=== PATIENT | female | born 1980 | race Caucasian/White ===

== ENCOUNTER 2017-12-02 12:36 | Emergency (ER) | payer BC, SELFPAY ==
[2017-12-02 14:42] VITALS: BP 103/79; PULSE 83; RESP 16; TEMP 36.9; O2SAT 100; BMI 25.8
--- NOTE | 2017-12-02 15:35 | HMH.EDUTC ---
[facility] [place] Clinical Impression: Impacted cerumen, right ear Right otitis media Qualifiers: Otitis media type: suppurative Chronicity: acute Recurrence: not specified as recurrent Spontaneous tympanic membrane rupture: without spontaneous rupture Qualified Code(s): H66.001 - Acute suppurative otitis media without spontaneous rupture of ear drum, right ear Disposition: Home, Self-Care Condition on Discharge: Good Instructions: DI for Cerumen Impaction, DI for Otitis Media (Middle Ear Infection)-Child Additional Instructions: * cerumen easily removed * Start antibiotic ABHISHEK and be sure to take as ordered for the FULL length of time although you should start to feel better in 24-48 hours. * Monitor Temp. Tylenol every 4 hours as needed no more then 5 times a day or 4000mg in 24 hours and/or ibuprofen every 6 hours as needed no more then 3200mg in 24 hours (as long as your primary care doctor has told you that it is ok to take both) for fever/aches/pain. ER if fever no less than 101 despite Tylenol and ibuprofen * Encourage fluids, water, Gatorade, PowerAde, pedialyte if /toddler/child * warm compress often helps when placed over ear * sleep elevated * Immediately for new or worsening symptoms, no noticeable improvement in 48-72 hours AND in 10-14 days to ensure ears are back to baseline. Prescriptions: Amoxicillin [Amoxicillin 875MG Tab] 875 mg PO Q12H #20 tab Referrals: Alvaro Licea MD [Primary Care Provider] - Medical Decision Making Vital Signs: 12/02/17 14:42 Temperature 98.5 F Temperature Source Temporal Artery Scan Pulse Rate [Left] 83 Respiratory Rate 16 Blood Pressure [Right Arm] 103/79 Blood Pressure Mean [Right Arm] 87 Blood Pressure Source [Right Arm] Automatic Cuff Blood Pressure Position [Right Arm] Sitting 02 Sat by Pulse Oximetry 100 Oxygen Delivery Method Room Air - Kyle Inquiry Pt receiving controlled substance: No [facility] [place] - General Stated complaint: ear pain Time Seen by Provider: 12/02/17 15:38 Mode of Arrival: Ambulatory Source of Information: Patient Limitations: No Limitations Description of Symptoms (Recalled from Triage Doc. by RN): RIGHT EAR ACHE YESTERDAY HEENT Symptoms (Recalled from RN notes): Yes Resp Symptoms (Recalled from RN notes): No Skin Symptoms (Recalled from RN notes): No MS Symptoms (Recalled from RN notes): No Functional Status (Recalled from RN notes): N - History of Present Illness Provider Complaint: c/o right ear pain that woke her up suddenly at 2am this morning. Mild irritation in ear x days. Tried alcohol/vinegar due to hx of otitis externa but didn't help. No fevers. No ear drainage. Decreased like muffled hearing. No treatment since pain got severe last night. - Related Data Previous Rx's Medication Instructions Recorded Amoxicillin [Amoxicillin 875MG Tab] 875 mg PO Q12H #20 tab 12/02/17 Allergies Allergy/AdvReac Type Severity Reaction Status Date / Time No Known Allergies Allergy Verified 12/02/17 14:49 - Worker's Comp Is this a Worker's Comp case?: No [facility] History I have reviewed the patient's past medical history: Yes Medical History: Denies:: Diabetes Mellitus Type 1, Diabetes Mellitus Type 2, Hypertension, Migraine - *Social History Alcohol Intake: never - Psychiatric History Expresses thoughts of harming self/others: None Suicide Plan Description: No Plan ROS Obtained: Yes All systems reviewed & no additional complaints except as noted - Constitutional Denies body ache(s), Denies chills, Denies fever(s), Denies headache(s) - Eyes Denies discharge - ENT Reports nasal discharge (mild, intermittent, x weeks), Denies dizziness, Denies nasal congestion, Denies sinus pain, Denies sinus pressure, Denies sore throat, Denies ringing in the ears - Respiratory Denies cough - Gastrointestinal Denies nausea, Denies vomiting - Musculoskeletal Denies joint pain - Integumentary/Breasts Denies r
--- NOTE | 2017-12-02 15:47 | ED_ITS ---
[facility] [place] Impression: Impacted cerumen, right ear Right otitis media Qualifiers: Otitis media type: suppurative Chronicity: acute Recurrence: not specified as recurrent Spontaneous tympanic membrane rupture: without spontaneous rupture Qualified Code(s): H66.001 - Acute suppurative otitis media without spontaneous rupture of ear drum, right ear Disposition: Home, Self-Care Condition on Discharge: Good Instructions: DI for Cerumen Impaction, DI for Otitis Media (Middle Ear Infection)-Child Additional Instructions: * cerumen easily removed * Start antibiotic ABHISHEK and be sure to take as ordered for the FULL length of time although you should start to feel better in 24-48 hours. * Monitor Temp. Tylenol every 4 hours as needed no more then 5 times a day or 4000mg in 24 hours and/or ibuprofen every 6 hours as needed no more then 3200mg in 24 hours (as long as your primary care doctor has told you that it is ok to take both) for fever/aches/pain. ER if fever no less than 101 despite Tylenol and ibuprofen * Encourage fluids, water, Gatorade, PowerAde, pedialyte if /toddler/ child * warm compress often helps when placed over ear * sleep elevated * Immediately for new or worsening symptoms, no noticeable improvement in 48-72 hours AND in 10-14 days to ensure ears are back to baseline. Prescriptions: Amoxicillin [Amoxicillin 875MG Tab] 875 mg PO Q12H #20 tab Referrals: Alvaro Licea MD [Primary Care Provider] - Medical Decision Making Vital Signs: 12/02/17 14:42 Temperature 98.5 F Temperature Source Temporal Artery Scan Pulse Rate [Left] 83 Respiratory Rate 16 Blood Pressure [Right Arm] 103/79 Blood Pressure Mean [Right Arm] 87 Blood Pressure Source [Right Arm] Automatic Cuff Blood Pressure Position [Right Arm] Sitting 02 Sat by Pulse Oximetry 100 Oxygen Delivery Method Room Air - Kyle Inquiry Pt receiving controlled substance: No [facility] [place] - General Stated complaint: ear pain Time Seen by Provider: 12/02/17 15:38 Mode of Arrival: Ambulatory Source of Information: Patient Limitations: No Limitations Description of Symptoms (Recalled from Triage Doc. by RN): RIGHT EAR ACHE YESTERDAY HEENT Symptoms (Recalled from RN notes): Yes Resp Symptoms (Recalled from RN notes): No Skin Symptoms (Recalled from RN notes): No MS Symptoms (Recalled from RN notes): No Functional Status (Recalled from RN notes): N - History of Present Illness Provider Complaint: c/o right ear pain that woke her up suddenly at 2am this morning. Mild irritation in ear x days. Tried alcohol/vinegar due to hx of otitis externa but didn't help. No fevers. No ear drainage. Decreased like muffled hearing. No treatment since pain got severe last night. - Related Data Previous Rx's Medication Instructions Recorded Amoxicillin [Amoxicillin 875MG Tab] 875 mg PO Q12H #20 tab 12/02/17 Allergies Allergy/AdvReac Type Severity Reaction Status Date / Time No Known Allergies Allergy Verified 12/02/17 14:49 - Worker's Comp Is this a Worker's Comp case?: No [facility] History I have reviewed the patient's past medical history: Yes Medical History: Denies:: Diabetes Mellitus Type 1, Diabetes Mellitus Type 2, Hypertension, Migraine - *Social History Alcohol Intake: never - Psychiatric History Expresses thoughts of harming self/others: None Suicide Plan Descripti
== END 2017-12-02 16:05 | disposition home or self-care (01) ==
PROVIDERS: Emergency Provider Nurse Practitioner Family; Family Provider Emergency Medicine; PCP Emergency Medicine
DX: H66.001 Acute suppurative otitis media without spontaneous rupture of ear drum, right ear (principal); H61.21 Impacted cerumen, right ear
CPT/HCPCS: 69210; 99202

== ENCOUNTER 2018-02-09 16:36 | Emergency (ER) | payer BC, SELFPAY ==
[2018-02-09 17:05] VITALS: BP 123/84; PULSE 113; RESP 18; TEMP 36.8; O2SAT 98; BMI 28.3
--- NOTE | 2018-02-09 17:24 | HMH.EDUTC ---
[facility] [place] Dis[place] Clinical Impression: Influenza Disposition: Home, Self-Care Condition on Discharge: Good Instructions: Influenza Additional Instructions: ? Start Tamiflu today if you are going to take it. Discussed risk and possible benefits. ? Lots of rest ? Increase Fluids water, Gatorade, powerade, pedialyte,if /toddler/child ? Alternate Tylenol and / or ibuprofen as discussed for fever, aches, chills x 24 hours without medication for symptoms ? Follow up IMMEDIATELY for new or worsening Symptoms OR no noticeable improvement over the next 48-72 hours, 911 for difficulty or breathing ? You or your child area contagious until no fever, aches, chills for 24 hours with medication for symptoms Prescriptions: Brompheniramine/Pseudoephed/Dm [Bromfed DM Cough Syrup 5mL] 10 ml PO Q4HP PRN #350 ml PRN Reason: Cough Oseltamivir Phosphate [Tamiflu 75mg Capsule] 75 mg PO BID #10 cap Referrals: Alvaro Licea MD [Primary Care Provider] - Forms: Work/School Release Time of Disposition: 17:29 Medical Decision Making - Medical Records Medical records reviewed: Yes: I reviewed the patient's medical records. - Kyle Inquiry Pt receiving controlled substance: No Kyle was queried for this patient: No Vital Signs: 02/09/18 17:05 Temperature 98.2 F Temperature Source Temporal Artery Scan Pulse Rate [Right] 113 H Respiratory Rate 18 Blood Pressure [Right Arm] 123/84 Blood Pressure Mean [Right Arm] 97 Blood Pressure Source [Right Arm] Automatic Cuff Blood Pressure Position [Right Arm] Sitting 02 Sat by Pulse Oximetry 98 Oxygen Delivery Method Room Air - Lab Data Lab results reviewed: Yes: I reviewed the patient's lab results. [facility] [place] HPI - General Stated complaint: Right ear pain, congestion Time Seen by Provider: 02/09/18 17:15 Mode of Arrival: Ambulatory Source of Information: Patient Limitations: No Limitations Description of Symptoms (Recalled from Triage Doc. by RN): EAR ACHE, CHEST CONGESTION HEENT Symptoms (Recalled from RN notes): Yes Resp Symptoms (Recalled from RN notes): No Skin Symptoms (Recalled from RN notes): No MS Symptoms (Recalled from RN notes): No Functional Status (Recalled from RN notes): N - History of Present Illness Provider Complaint: Patient state that she has been having ear aches, body aches, chills and fever State that today her throat felt a little sore States that she was seen on Wednesday but now she feels like she may have the flu - Related Data Previous Rx's Medication Instructions Recorded Amoxicillin [Amoxicillin 875MG Tab] 875 mg PO Q12H #20 tab 12/02/17 Brompheniramine/Pseudoephed/Dm 10 ml PO Q4HP PRN #350 ml 02/09/18 [Bromfed DM Cough Syrup 5mL] Oseltamivir Phosphate [Tamiflu 75 mg PO BID #10 cap 02/09/18 75mg Capsule] Allergies Allergy/AdvReac Type Severity Reaction Status Date / Time No Known Allergies Allergy Verified 12/02/17 14:49 - Worker's Comp Is this a Worker's Comp case?: No [facility] [place] History I have reviewed the patient's past medical history: Yes Medical History: Denies:: Diabetes Mellitus Type 1, Diabetes Mellitus Type 2, Hypertension, Migraine - Social History Alcohol Intake: never - Psychiatric History Expresses thoughts of harming self/others: None Suicide Plan Description: No Plan ROS Obtained: Yes All systems reviewed & no additional complaints - Constitutional Constitutional: Reports body ache, Reports chills, Reports fever(s) - ENT Ears, Nose, Mouth, and Throat: Reports nasal congestion, Reports nasal discharge, Reports sore throat - Respiratory Respiratory: No chest congestion, Yes cough Physical Exam - General General appearance: alert, in no apparent distress - Expanded ENT Exam Nose exam: Present: other (Reports clear drainage from nose) - Respiratory Respiratory exam: Present: normal lung sounds bilaterally. Absent: respiratory distress - Cardiovascular Cardiovascular exam: Present: tachy
--- NOTE | 2018-02-09 17:28 | ED_ITS ---
[facility] – [place] Disposition Clinical Impression: Influenza Disposition: Home, Self-Care Condition on Discharge: Good Instructions: Influenza Additional Instructions: ? Start Tamiflu today if you are going to take it. Discussed risk and possible benefits. ? Lots of rest ? Increase Fluids water, Gatorade, powerade, pedialyte,if /toddler/child ? Alternate Tylenol and / or ibuprofen as discussed for fever, aches, chills x 24 hours without medication for symptoms ? Follow up IMMEDIATELY for new or worsening Symptoms OR no noticeable improvement over the next 48-72 hours, 911 for difficulty or breathing ? You or your child area contagious until no fever, aches, chills for 24 hours with medication for symptoms Prescriptions: Brompheniramine/Pseudoephed/Dm [Bromfed DM Cough Syrup 5mL] 10 ml PO Q4HP PRN # 350 ml PRN Reason: Cough Oseltamivir Phosphate [Tamiflu 75mg Capsule] 75 mg PO BID #10 cap Referrals: Alvaro Licea MD [Primary Care Provider] - Forms: Work/School Release Time of Disposition: 17:29 Medical Decision Making - Medical Records Medical records reviewed: Yes: I reviewed the patient's medical records. - Kyle Inquiry Pt receiving controlled substance: No Kyle was queried for this patient: No Vital Signs: 02/09/18 17:05 Temperature 98.2 F Temperature Source Temporal Artery Scan Pulse Rate [Right] 113 H Respiratory Rate 18 Blood Pressure [Right Arm] 123/84 Blood Pressure Mean [Right Arm] 97 Blood Pressure Source [Right Arm] Automatic Cuff Blood Pressure Position [Right Arm] Sitting 02 Sat by Pulse Oximetry 98 Oxygen Delivery Method Room Air - Lab Data Lab results reviewed: Yes: I reviewed the patient's lab results. [facility] [place] HPI - General Stated complaint: Right ear pain, congestion Time Seen by Provider: 02/09/18 17:15 Mode of Arrival: Ambulatory Source of Information: Patient Limitations: No Limitations Description of Symptoms (Recalled from Triage Doc. by RN): EAR ACHE, CHEST CONGESTION HEENT Symptoms (Recalled from RN notes): Yes Resp Symptoms (Recalled from RN notes): No Skin Symptoms (Recalled from RN notes): No MS Symptoms (Recalled from RN notes): No Functional Status (Recalled from RN notes): N - History of Present Illness Provider Complaint: Patient state that she has been having ear aches, body aches , chills and fever State that today her throat felt a little sore States that she was seen on Wednesday but now she feels like she may have the flu - Related Data Previous Rx's Medication Instructions Recorded Amoxicillin [Amoxicillin 875MG Tab] 875 mg PO Q12H #20 tab 12/02/17 Brompheniramine/Pseudoephed/Dm 10 ml PO Q4HP PRN #350 ml 02/09/18 [Bromfed DM Cough Syrup 5mL] Oseltamivir Phosphate [Tamiflu 75 mg PO BID #10 cap 02/09/18 75mg Capsule] Allergies Allergy/AdvReac Type Severity Reaction Status Date / Time No Known Allergies Allergy Verified 12/02/17 14:49 - Worker's Comp Is this a Worker's Comp case?: No [facility] History I have reviewed the patient's past medical history: Yes Medical History: Denies:: Diabetes Mellitus Type 1, Diabetes Mellitus Type 2, Hypertension, Migraine - Social History Alcohol Intake: never - Psychiatric History Expresses thoughts of harming self/others: None Suicide Plan Description: No Plan ROS Obtained: Yes All
[2018-02-09 17:32] VITALS: BP 123/84; PULSE 110; RESP 18; TEMP 36.8
[2018-02-09 19:16] LABS: UTC Influenza A Antigen Positive (Negative); UTC Influenza B Antigen Negative (Negative)
== END 2018-02-09 17:41 | disposition home or self-care (01) ==
PROVIDERS: Emergency Provider Nurse Practitioner; Family Provider Emergency Medicine; PCP Emergency Medicine
DX: J10.1 Influenza due to other identified influenza virus with other respiratory manifestations (principal); H66.91 Otitis media, unspecified, right ear; H61.21 Impacted cerumen, right ear
CPT/HCPCS: 87804; 99201

== ENCOUNTER 2021-02-22 13:56 | Emergency (ER) | payer BC, SELFPAY ==
[2021-02-22 14:18] VITALS: BP 137/88; PULSE 100; RESP 16; TEMP 36.2; O2SAT 98; BMI 29.0
--- NOTE | 2021-02-22 14:39 | HMH.EDUTC ---
[facility] [place] Clinical Impression: Laceration Disposition: Home, Self-Care Condition on Discharge: Good Instructions: DI for Laceration Repair-Skin Glue Additional Instructions: keep area clean and dry watch for s/s infection antibiotics as ordered return if any problems Prescriptions: cephALEXin [Cephalexin 500mg Tab] 500 mg PO BID 7 Days #14 tab Prescription Printed Referrals: Alvaro Licea MD [Primary Care Provider] - Time of Disposition: 15:13 Medical Decision Making - Kyle Inquiry Pt receiving controlled substance: No Vital Signs: 02/22/21 14:18 Temperature 97.2 F L Temperature Source Tympanic Pulse Rate [Right] 100 H Respiratory Rate 16 Blood Pressure [Right Arm] 137/88 Blood Pressure Mean [Right Arm] 104 Blood Pressure Source [Right Arm] Automatic Cuff Blood Pressure Position [Right Arm] Sitting 02 Sat by Pulse Oximetry 98 Oxygen Delivery Method Room Air [facility] [place] HPI - General Chief complaint: Urgent [facility] Stated complaint: AO [id number] cut left thumb Time Seen by Provider: 02/22/21 15:03 Mode of Arrival: Ambulatory Source of Information: Patient Limitations: No Limitations Description of Symptoms (Recalled from Triage Doc. by RN): pt has a laceration on the top of her L thumb from a kitchen knife. there is a very small skin flap covering the laceration. HEENT Symptoms (Recalled from RN notes): No Resp Symptoms (Recalled from RN notes): No Skin Symptoms (Recalled from RN notes): Yes (L thumb lac) MS Symptoms (Recalled from RN notes): No Functional Status (Recalled from RN notes): na - History of Present Illness Provider Complaint: 40 yr old female presents for laceration to left thumb. pt states she was cutting food and sliced thumb with knife a few hours ago. unknown tetus date - Related Data Previous Rx's Medication Instructions Recorded prednisone 20 mg tablet 20 mg PO BID #10 tab 07/04/20 cephALEXin [Cephalexin 500mg Tab] 500 mg PO BID 7 Days #14 tab 02/22/21 Allergies Allergy/AdvReac Type Severity Reaction Status Date / Time No Known Allergies Allergy Verified 09/23/19 18:00 - Worker's Comp Is this a Worker's Comp case?: No [facility] History - Hepatitis A Screen Drug use history?: No High risk sexual behaviors?: No History of sexually transmitted infection?: No Currently employed?: No Childcare worker?: No Do you have indoor plumbing?: Yes Do you have electricity?: Yes Attestation statement:: This patient has been screened for Hepatitis A risk factors. I have reviewed the patient's past medical history: Yes Medical History: Denies:: Diabetes Mellitus Type 1, Diabetes Mellitus Type 2, Hypertension, Migraine Other Surgeries: Yes: No Previous Surgery Amputation: No Fractures: No - Social History Smoking Status: Never smoker Alcohol Intake: current Alcohol Intake Frequency:: holidays/special occasions only Substance Use Type: denies use Occupational Status: employed Housing: house Household Members: children, spouse Family Hx:: Diabetes ROS Obtained: Yes Systems reviewed as appropriate & no additional complaints - Constitutional Constitutional: Reports system reviewed and no additional complaints, except as docu, Denies fever(s) - Eyes Eyes: Reports system reviewed and no additional complaints, except as docu, Denies blurry vision - ENT Ears, Nose, Mouth, and Throat: Reports system reviewed and no additional complaints, except as docu, Denies lip swelling - Cardiovascular Cardiovascular: Reports system reviewed and no additional complaints, except as docu, Denies chest pain at rest - Respiratory Respiratory: Reports system reviewed and no additional complaints, except as docu, Denies change in phlegm color - Gastrointestinal Gastrointestingal: Reports: system reviewed and no additional complaints, except as docu. Denies: nausea - Genitourinary Female Genitourinary: Reports system reviewed and no additional complaints, exc
[2021-02-22 15:12] VITALS: BP 132/81; PULSE 95; RESP 14; TEMP 36.6
== END 2021-02-22 15:16 | disposition home or self-care (01) ==
PROVIDERS: Emergency Provider Nurse Practitioner Family; PCP Emergency Medicine
DX: S61.012A Laceration without foreign body of left thumb without damage to nail, initial encounter (principal); W26.0XXA Contact with knife, initial encounter; Y92.010 Kitchen of single-family (private) house as the place of occurrence of the external cause; Z23 Encounter for immunization
CPT/HCPCS: 12001; 90471; 90715; 99202; G0463

== ENCOUNTER 2021-02-27 15:22 | Emergency (ER) | payer BC, SELFPAY ==
--- NOTE | 2021-02-27 15:31 | PC.NURSE ---
pt came in and I examined wound. Wound had no redness and looked good. Rebandaged and pt left without being seen by provider.
[2021-02-27 15:32] VITALS: BP 0/0; PULSE 0; RESP 0; TEMP -17.7; TEMP 0
== END 2021-02-27 15:32 | disposition left against medical advice (07) ==
PROVIDERS: Emergency Provider Nurse Practitioner Family; PCP Emergency Medicine
DX: Z53.21 Procedure and treatment not carried out due to patient leaving prior to being seen by health care provider (principal)

== ENCOUNTER → 2021-04-14 14:04 | Outpatient (CLI) | payer BC, SELFPAY ==
[2021-04-14 14:16] LABS: Basophils # 0.1 K/mm3 (0-0.2); Basophils % 0.5 % (0.1-2.0); Eosinophils # 0.2 K/mm3 (0.0-0.4); Eosinophils % 1.4 % (0.1-12.0); Hematocrit 42.5 % (37.0-47.0); Hemoglobin 12.8 g/dL (12.2-16.2); Mean Corpuscular Volume 89.9 fl (81-99); Mean Platelet Volume 7.5 fl (7.4-10.4); Monocytes # 0.7 K/mm3 (0.1-1.0); Monocytes % 6.6 % (1.7-9.3); Neutrophils # 7.5 K/mm3 (1.8-7.8); Neutrophils % 72.5 % (37.0-80.0); Platelet Count 390 K/mm3 (142-424); Red Blood Count 4.73 M/mm3 (4.20-5.40); Red Cell Distribution Width 13.7 % (11.5-17.5); White Blood Count 10.4 K/mm3 (4.8-10.8)
[2021-04-14 14:27] LABS: Alanine Aminotransferase 24 U/L (12-78); Albumin Level 4.1 g/dl (3.5-5.0); Albumin/Globulin Ratio 1.4 (1.1-1.8); Alkaline Phosphatase 80 U/L (38-126); Anion Gap 11.8 mEq/L (5-15); Aspartate Amino Transferase 24 U/L (14-36); Bilirubin,Total 0.5 mg/dl (0.2-1.3); Blood Urea Nitrogen 14 mg/dl (7-17); Calcium 9.2 mg/dl (8.4-10.2); Carbon Dioxide 23 mmol/L (22.0-30.0); Chloride 108 mmol/L (98-107); Chol/HDL Ratio 4.3 (1-3.5); Cholesterol 213 mg/dl (140-200); Estimated Glomerular Filt Rate 79 ml/min (>60); GFR (African American) 96 ML/MIN (>60); Globulin 2.9 g/dL (1.3-3.2); Glucose 120 mg/dl (74-100); HDL Cholesterol 49 mg/dl (40-60); Potassium 4.8 mmoL/L (3.5-5.1); Sodium 138 mmol/L (136-145); Triglycerides 145 mg/dl (30-150); VLDL Cholesterol 29 mg/dL (0-40)
[2021-04-14 14:33] LABS: 25-OH Vitamin D, Total 24.5 ng/mL (30-100)
[2021-04-14 14:38] LABS: Direct LDL Cholesterol 120.06 mg/dL (100-129)
[2021-04-14 14:43] LABS: Free T4 (Free Thyroxine) 0.99 ng/dl (0.78-2.19)
[2021-04-14 14:56] LABS: Thyroid Stimulating Hormone 2.66 uIU/mL (0.465-4.68)
[2021-04-14 17:54] LABS: Hemoglobin A1C 5.7 % (4.0-6.0)
== END ==
PROVIDERS: Visit Provider Emergency Medicine
DX: R53.83 Other fatigue (principal); E55.9 Vitamin D deficiency, unspecified
CPT/HCPCS: 80053; 80061; 82306; 83036; 84439; 84443; 85025

== ENCOUNTER → 2021-04-29 09:29 | Outpatient (CLI) | payer BC, SELFPAY ==
--- NOTE | 2021-04-29 09:32 | CA_ITS ---
APPROVED REPORT EXAM: Comprehensive 2D, Doppler, and color-flow Echocardiogram Automotive Painter: Sera Jauregui RVT Ht: 5 ft 6 in Wt: 208lbs BSA: 2.03 BP: 124/80 mmHg Indications: MURMUR,EX SMOKER,MCKOY 2D Dimensions LVOT 2.16 cm (M/F) 1.5-2.5 LA Volume 21.80 mL LA Volume Index 10.73 mL/m2 (M/F) 16-34 M-Mode Dimensions RVDd 2.57 cm (0.9-2.6) LA Diam 3.39 cm (1.9-4.0) LVDd 5.33 cm (3.5-5.7) Ao Diam 2.92 cm (2.0-3.7) LVDs 3.65 cm (3.5-5.7) IVSd 0.89 cm (0.6-1.1) PWd 0.64 cm (0.6-1.1) EF (Teich) 58.90% FS 31.50% EDV (Teich) 137.10 mL TAPSE 1.70 (<1.7) ESV (Teich) 56.30 mL LV Diastology E Decel Time 157.00 (160-240 msec) E/A Ratio 1.8 MED E' 6.90 (< 7 cm/sec) E'/MED E' Ratio 13.01 (>14) LAT E' 12.80 (<10 cm/sec) E/LAT E' Ratio 7.02 (>14) Aortic Valve AO Peak GR. 6.30 mmHg Mitral Valve MV E Max Beka. 90.00 (40-130 cm/s) MV A Velocity 51.00 (40-130 cm/s) E/A Ratio 1.76 MV Decel. Time 157.00 (160-240 ms) MV PHT 46.00 ms Pulmonary Valve PV Peak Velocity 87.00 (50-150 cm/s) Tricuspid Valve TR P. Velocity 193.00 cm/s RAP Estimate 10.00 mmHg RVSP 25.00 mmHg Left Ventricle Left atrium normal size, left ventricle is normal size, there is no concentric left ventricular hypertrophy, visually estimated ejection fraction 55% with no regional wall motion abnormality, diastolic parameters are within normal range. Right Ventricle Right atrium and right ventricle are normal size and contractility. Aortic Valve Aortic valve is minimally thickened and fibrosed, there is no aortic stenosis or aortic insufficiency. Mitral Valve Mitral valve grossly normal, there is trace mitral regurgitation. Tricuspid Valve Tricuspid grossly normal, there is trace tricuspid regurgitation, tricuspid regurgitation jet velocity is inadequate for calculation of the right ventricular systolic pressure. Pulmonic Valve Pulmonic valve is poorly visualized. Great Vessels Aortic root is normal size. Pericardium No significant pericardial effusion noted. Conclusion 1. Normal left ventricular size, preserved left ventricular systolic function, visually estimated ejection fraction 55% with no regional wall motion abnormality, diastolic parameters are within normal range. 2. Trace mitral and tricuspid regurgitation. 3. No significant pericardial effusion noted. Electronically signed by : Paul Jean, 04/29/2021 18:48:39
== END ==
PROVIDERS: PCP Emergency Medicine; Visit Provider Emergency Medicine
DX: R01.1 Cardiac murmur, unspecified (principal)
CPT/HCPCS: 93306

== ENCOUNTER → 2021-05-06 10:33 | Outpatient (CLI) | payer BC, SELFPAY ==
--- NOTE | 2021-05-06 10:37 | MM_ITS ---
PROCEDURE INFORMATION: Exam: MG Screening 3D Mammography Exam date and time: 05/06/2021 10:37 AM Age: 40 years old Clinical indication: Encounter for screening mammogram for malignant neoplasm of breast TECHNIQUE: Imaging protocol: Screening tomosynthesis and 2D mammography including computer-aided detection (CAD) when performed. COMPARISON: No relevant prior studies available. FINDINGS: MAMMOGRAPHY: Breast composition: The breast tissue is composed of scattered areas of fibroglandular density. Mass: None. Architectural distortion: None. Calcifications: Indeterminate clustered calcifications in the middle third of the left lower inner quadrant Asymmetric density: None. Skin thickening: None. Axillary adenopathy: None. IMPRESSION: Patient to be recalled for spot magnification views of the left breast in the CC and MLO projections for further evaluation of left breast calcifications. ASSESSMENT: BI-RADS Category 0: Incomplete- Need Additional Imaging Evaluation and/or Prior Mammograms for Comparison
== END ==
PROVIDERS: PCP Emergency Medicine; Visit Provider Emergency Medicine
DX: Z12.31 Encounter for screening mammogram for malignant neoplasm of breast (principal)
CPT/HCPCS: 77063; 77067

== ENCOUNTER → 2021-05-21 13:57 | Outpatient (CLI) | payer BC, SELFPAY ==
--- NOTE | 2021-05-21 13:57 | MM_ITS ---
PROCEDURE: MM DIG MAMM DX UNILAT LT CAD Digital Breast Tomosynthesis Included CLINICAL INDICATION: abn mamm COMPARISON: Digital mammograms 05/06/2021 TECHNIQUE: Spot compression magnification views were obtained in the MLO and CC projection FINDINGS: The collection of microcalcifications lower inner quadrant left breast have a primarily benign appearance on the additional views. There is asymmetric glandular elements present as well. There are no definite suspicious microcalcifications identified. However since this is a baseline study recommend the patient return for six-month follow-up left mammogram to assure interval stability. IMPRESSION: Probable benign microcalcifications BI-RAD Category: 3 Probably Benign Finding Short Term Follow-up FOLLOW-UP: 6M 6Month Follow-up (A letter has been sent to the patient regarding results of the study.) Dictated by: Dr. Donald Guerra MD 05/21/2021 14:39 Dr. Donald Guerra MD in [place] 05/21/2021 14:39
== END ==
PROVIDERS: PCP Emergency Medicine; Visit Provider Emergency Medicine
DX: R92.8 Other abnormal and inconclusive findings on diagnostic imaging of breast (principal)
CPT/HCPCS: 77061; 77065; G0279

== ENCOUNTER 2021-10-17 14:28 | Emergency (ER) | payer BC, SELFPAY ==
[2021-10-17 16:35] LABS: UTC Strep Screen (Rapid) Negative (Negative)
[2021-10-17 16:39] VITALS: BP 125/94; PULSE 89; RESP 18; TEMP 36.9; O2SAT 98; BMI 32.3
--- NOTE | 2021-10-17 16:45 | HMH.EDUTC ---
[facility] – [place], [place] Disposition Clinical Impression: Pharyngitis Qualifiers: Pharyngitis/tonsillitis etiology: unspecified etiology Qualified Code(s): J02.9 - Acute pharyngitis, unspecified Disposition: Home, Self-Care Condition on Discharge: Good Instructions: DI for Viral Syndrome, Preventing the Spread of Coronavirus Discharge Instructions, DI for COVID-19 (Suspected or Confirmed ) Additional Instructions: Drink plenty of fluids. Take tylenol or ibuprofen for pain or fever. Take the medications as directed. Follow up with your regular doctor. GO TO THE ER FOR ANY WORSENING SYMPTOMS Quarantine until you know the results of your covid-19 test. If it is positive, the health department should call you and give you further instructions about your length of Quarantine and other things. Notify your school or workplace of your results and follow their instructions regarding return to work/school. Prescriptions: Brompheniramine/Pseudoephed/Dm [Bromfed Dm Cough Syrup] 5 ml PO Q6HP PRN #240 ml PRN Reason: Cough Transmission Status: Pending to [facility] Azithromycin [Z-Kulwant 250mg Tab*] 250 mg PO UD DOSE PK #6 tab Transmission Status: Pending to [facility] Referrals: Alvaro Licea MD [Primary Care Provider] - Forms: Work/School Release Time of Disposition: 17:01 Medical Decision Making - Medical Records Medical records reviewed: No: I reviewed the patient's medical records. - Kyle Inquiry Pt receiving controlled substance: No Vital Signs: 10/17/21 16:39 Temperature 98.5 F Temperature Source Oral Pulse Rate [Left Radial] 89 Respiratory Rate 18 Blood Pressure [Right Arm] 125/94 H Blood Pressure Mean [Right Arm] 104 Blood Pressure Source [Right Arm] Automatic Cuff Blood Pressure Position [Right Arm] Sitting 02 Sat by Pulse Oximetry 98 Oxygen Delivery Method Room Air - Lab Data Lab results reviewed: Yes: I reviewed the patient's lab results. Lab Results 10/17/21 16:32: Strep Scn Rapid Clinic Negative Orders (Tests/Meds): ORDERS Category Date Time Status Strep Screen Confirmation Routine Micro 10/17/21 16:32 Received [facility] – [place], [place] HPI - General Stated complaint: sore throat, weakness, body aches, loss of taste, Time Seen by Provider: 10/17/21 16:45 - History of Present Illness Provider Complaint: She states that for the past 2 days she has had body aches, a cough, congestion, sore throat, and she has felt very bad. She denies any chest pain or shortness of breath. - Related Data Previous Rx's Medication Instructions Recorded cholecalciferol (vitamin D3) 1,250 1,250 mcg PO WEEKLY #5 cap 04/22/21 mcg (50,000 unit) capsule cholecalciferol (vitamin D3) 25 25 mcg PO DAILY 90 Days #90 cap 04/22/21 mcg (1,000 unit) capsule Azithromycin [Z-Kulwant 250mg Tab*] 250 mg PO UD DOSE PK #6 tab 10/17/21 Brompheniramine/Pseudoephed/Dm 5 ml PO Q6HP PRN #240 ml 10/17/21 [Bromfed Dm Cough Syrup] Allergies Allergy/AdvReac Type Severity Reaction Status Date / Time No Known Allergies Allergy Verified 04/14/21 09:13 [facility] History - Hepatitis A Screen Attestation statement:: This patient has been screened for Hepatitis A risk factors. I have reviewed the patient's past medical history: Yes Medical History: Denies:: Diabetes Mellitus Type 1, Diabetes Mellitus Type 2, Hypertension, Migraine Other Medical History: Reports: Other (seasonal allergies) Other Surgeries: Yes: No Previous Surgery, Hernia Repair Amputation: No Fractures: No - Social History Smoking Status: Former smoker Alcohol Intake: current Alcohol Intake Frequency:: holidays/special occasions only Substance Use Type: denies use Occupational Status: employed Housing: house Household Members: children, spouse Family Hx:: Diabetes, Heart Attack, Hypertension, Stroke ROS Obtained: Yes All systems reviewed & no additional complaints - Constitutional Constitutional: Reports as per HPI - Eyes Eye
[2021-10-17 17:18] LABS: Adenovirus,PCR Not Detected (NotDetected); Bordetella Pertussis Not Detected (NotDetected); Chlamydophila Pneumoniae, PCR Not Detected (NotDetected); Coronavirus 229E Not Detected (NotDetected); Coronavirus NL63 Not Detected (NotDetected); Coronavirus OC43 Not Detected (NotDetected); Coronovirus HKU1,PCR Not Detected (NotDetected); Human Metapneumovirus Not Detected (NotDetected); Influenza A, PCR Not Detected (NotDetected); Influenza AH1, 2009 Not Detected (NotDetected); Influenza AH1, PCR Not Detected (NotDetected); Influenza AH3,PCR Not Detected (NotDetected); Influenza B, PCR Not Detected (NotDetected); Mycoplasma Pneumoniae, PCR Not Detected (NotDetected); Parainfluenza 1, PCR Not Detected (NotDetected); Parainfluenza 2, PCR Not Detected (NotDetected); Parainfluenza 3, PCR Not Detected (NotDetected); Parainfluenza 4, PCR Not Detected (NotDetected); Respiratory Syncytial Virus Not Detected (NotDetected); Rhinovirus/Enterovirus Not Detected (NotDetected)
[2021-10-17 17:19] VITALS: BP 125/94; PULSE 89; RESP 18; TEMP 36.9; O2SAT 98
[2021-10-17 19:40] LABS: Coronavirus 19, PCR Detected (NotDetected)
--- NOTE | 2021-10-18 09:32 | PC.NURSE ---
INFORMED PATIENT THAT SHE IS POSITIVE
== END 2021-10-17 17:22 | disposition home or self-care (01) ==
PROVIDERS: Emergency Provider Nurse Practitioner Family; PCP Emergency Medicine
DX: U07.1 COVID-19 (principal); J02.9 Acute pharyngitis, unspecified
CPT/HCPCS: 87581; 87632; 87798; 87880; 99202; C9803; G0463; U0003; U0005

== ENCOUNTER 2022-04-20 19:42 | Emergency (ER) | payer BC, SELFPAY ==
[2022-04-20 20:15] VITALS: BP 130/86; PULSE 74; RESP 19; TEMP 36.8; O2SAT 100; BMI 32.4
--- NOTE | 2022-04-20 20:38 | HMH.EDUTC ---
[facility] [place] Impression: Encounter for laboratory testing for COVID-19 virus Disposition: Home, Self-Care Condition on Discharge: Good Instructions: DI for COVID-19 (Suspected or Confirmed ), Preventing the Spread of Coronavirus Discharge Instructions Additional Instructions: Calculating Isolation Day 0 is your first day of symptoms or a positive viral test. Day 1 is the first full day after your symptoms developed or your test specimen was collected. If you have COVID-19 or have symptoms, isolate for at least 5 days. IF YOU Tested positive for COVID-19 or have symptoms, regardless of vaccination status Stay home for at least 5 days Stay home for 5 days and isolate from others in your home. Wear a well-fitting mask if you must be around others in your home. Do not travel. Ending isolation if you had symptoms End isolation after 5 full days if you are fever-free for 24 hours (without the use of fever-reducing medication) and your symptoms are improving. Ending isolation if you did NOT have symptoms End isolation after at least 5 full days after your positive test. If you got very sick from COVID-19 or have a weakened immune system You should isolate for at least 10 days. Consult your doctor before ending isolation. Take precautions until day 10 Wear a well-fitting mask Wear a well-fitting mask for 10 full days any time you are around others inside your home or in public. Do not go to places where you are unable to wear a mask. Do not travel Do not travel until a full 10 days after your symptoms started or the date your positive test was taken if you had no symptoms. Avoid being around people who are more likely to get very sick from COVID-19. You were tested for today for COVID19 your test result should be back in the next 24-48 hours, your results should be available on the [facility] portal for viewing CDC recommends Quarantine for Make sure to take your Vitamins Vit. C Vit D and Zinc if you can take them Referrals: Alvaro Licea MD [Primary Care Provider] - As needed Forms: Work/School Release Medical Decision Making - Kyle Inquiry Pt receiving controlled substance: No Kyle was queried for this patient: No Vital Signs: 04/20/22 20:15 Temperature 98.3 F Temperature Source Oral Pulse Rate [Right Brachial] 74 Respiratory Rate 19 Blood Pressure [Right Arm] 130/86 Blood Pressure Mean [Right Arm] 100 Blood Pressure Source [Right Arm] Automatic Cuff Blood Pressure Position [Right Arm] Sitting 02 Sat by Pulse Oximetry 100 Oxygen Delivery Method Room Air Orders (Tests/Meds): ORDERS Category Date Time Status Covid-19 Nasal PCR ([facility]) Routine Lab 04/20/22 20:16 [place] [facility] [place] - General Stated complaint: covid test Time Seen by Provider: 04/20/22 20:38 Mode of Arrival: Ambulatory Source of Information: Patient Limitations: No Limitations Description of Symptoms (Recalled from Triage Doc. by RN): PATIENT REQUESTING COVID TEST D/T SECONDARY EXPOSURE HEENT Symptoms (Recalled from RN notes): No Resp Symptoms (Recalled from RN notes): No Skin Symptoms (Recalled from RN notes): No MS Symptoms (Recalled from RN notes): No Functional Status (Recalled from RN notes): WNL - History of Present Illness Provider Complaint: Patient states that she was around a friend who had been exposed to COVID by their mother who tested positive States that she is not having any symptoms but wanted to get tested - Related Data Previous Rx's Medication Instructions Recorded cholecalciferol (vitamin D3) 1,250 1,250 mcg PO WEEKLY #5 cap 04/22/21 mcg (50,000 unit) capsule cholecalciferol (vitamin D3) 25 25 mcg PO DAILY 90 Days #90 cap 25/21 mcg (1,000 unit) capsule Azithromycin [Z-Kulwant 250mg Tab*] 250 mg PO UD DOSE PK #6 tab 10/17/21 Brompheniramine/Pseudoephed/Dm 5 ml PO Q6HP PRN #240 ml 10/17/21 [Bromfed Dm Cough Syrup] Allergies Allergy/AdvReac Type Severity Reaction Status Date /
[2022-04-20 20:50] VITALS: BP 130/86; PULSE 74; RESP 19; TEMP 36.8; O2SAT 100
== END 2022-04-20 20:54 | disposition home or self-care (01) ==
PROVIDERS: Emergency Provider Nurse Practitioner; PCP Emergency Medicine
DX: Z20.822 Contact with and (suspected) exposure to COVID-19 (principal)
CPT/HCPCS: 99211; C9803; G0463; U0003; U0005

== ENCOUNTER → 2022-05-20 15:16 | Outpatient (CLI) | payer BC, SELFPAY | PROVIDERS: PCP Emergency Medicine; Visit Provider Nurse Practitioner Family | DX: Z11.1 Encounter for screening for respiratory tuberculosis (principal) | CPT/HCPCS: 86580 ==

== ENCOUNTER 2022-07-01 17:34 | Emergency (ER) | payer BC, SELFPAY ==
--- NOTE | 2022-07-01 17:47 | HMH.EDUTC ---
[facility] [place] [facility] [place] Dis[place] Clinical Impression: Strep throat Disposition: Home, Self-Care Condition on Discharge: Good Instructions: Strep Throat, DI for Strep Throat Additional Instructions: Drink plenty of fluids. Take tylenol or ibuprofen for pain or fever. Take the medications as directed. Follow up with your regular doctor. GO TO THE ER FOR ANY WORSENING SYMPTOMS Throw your tooth brush away and get a new one. Prescriptions: Amoxicillin [Amoxicillin 875MG Tab] 875 mg PO Q12H #20 tab Transmission Status: Sent to [facility] methylPREDNISolone [Medrol] 4 mg PO DIRECTED 6 Days #21 packet Transmission Status: Sent to [facility] Moxifloxacin HCl [Vigamox] 1 drp EYE-RIGHT TID 7 Days #3 ml Transmission Status: Sent to [facility] Referrals: Alvaro Licea MD [Primary Care Provider] - Forms: Work/School Release Time of Disposition: 18:13 Medical Decision Making - Medical Records Medical records reviewed: No: I reviewed the patient's medical records. - Kyle Inquiry Pt receiving controlled substance: No Vital Signs: 07/01/22 17:52 07/01/22 18:13 Temperature 97.9 F 97.9 F Temperature Source Oral Pulse Rate 98 H Pulse Rate [Left] 98 H Respiratory Rate 16 16 Blood Pressure 128/89 Blood Pressure [Right Arm] 128/89 Blood Pressure Mean [Right Arm] 102 02 Sat by Pulse Oximetry 97 - Lab Data Lab results reviewed: Yes: I reviewed the patient's lab results. Lab Results 07/01/22 17:44: Strep Scn Rapid Clinic Positive [facility] [place] [facility] [place] HPI - General Stated complaint: R ear pain, neck pain and sore throat Time Seen by Provider: 07/01/22 17:47 - History of Present Illness Provider Complaint: She c/o sore throat, feeling bad, chills, and a dry cough for the past 2 days. - Related Data Previous Rx's Medication Instructions Recorded cholecalciferol (vitamin D3) 1,250 1,250 mcg PO WEEKLY #5 cap 05/25/21 mcg (50,000 unit) capsule cholecalciferol (vitamin D3) 25 25 mcg PO DAILY 90 Days #90 cap 05/25/21 mcg (1,000 unit) capsule Azithromycin [Z-Kulwant 250mg Tab*] 250 mg PO UD DOSE PK #6 tab 10/17/21 Brompheniramine/Pseudoephed/Dm 5 ml PO Q6HP PRN #240 ml 10/17/21 [Bromfed Dm Cough Syrup] Amoxicillin [Amoxicillin 875MG 875 mg PO Q12H #20 tab 07/01/22 Tab] Moxifloxacin HCl [Vigamox] 1 drp EYE-RIGHT TID 7 Days #3 ml 07/01/22 methylPREDNISolone [Medrol] 4 mg PO DIRECTED 6 Days #21 07/01/22 packet Allergies Allergy/AdvReac Type Severity Reaction Status Date / Time No Known Allergies Allergy Verified 07/01/22 17:58 [facility] History - Hepatitis A Screen Attestation statement:: This patient has been screened for Hepatitis A risk factors. I have reviewed the patient's past medical history: Yes Medical History: Denies:: Diabetes Mellitus Type 1, Diabetes Mellitus Type 2, Hypertension, Migraine Other Medical History: Reports: Other (seasonal allergies) Other Surgeries: Yes: No Previous Surgery, Hernia Repair Amputation: No Fractures: No - Social History Smoking Status: Former smoker Alcohol Intake: current Alcohol Intake Frequency:: holidays/special occasions only Substance Use Type: denies use Occupational Status: employed Housing: house Household Members: children, spouse Family Hx:: Diabetes, Heart Attack, Hypertension, Stroke ROS Obtained: Yes All systems reviewed & no additional complaints - Constitutional Constitutional: Reports as per HPI - Eyes Eyes: Denies eye discharge - ENT Ears, Nose, Mouth, and Throat: Reports as per HPI - Cardiovascular Cardiovascular: Denies chest pain - Respiratory Respiratory: Denies chest congestion, Reports cough Physical Exam - General General appearance: alert, in no apparent distress - Head Head exam: atraumatic, normocephalic, normal inspection - Eye Eye exam: Present: normal appearance, PERRL, EOMI - ENT ENT exam: Present: mucous membranes moist, normal external e
[2022-07-01 17:52] VITALS: BP 128/89; PULSE 98; RESP 16; TEMP 36.6; O2SAT 97; BMI 32.3
[2022-07-01 17:54] LABS: UTC Strep Screen (Rapid) Positive (Negative)
[2022-07-01 18:13] VITALS: BP 128/89; PULSE 98; RESP 16; TEMP 36.6
== END 2022-07-01 18:18 | disposition home or self-care (01) ==
PROVIDERS: Emergency Provider Nurse Practitioner Family; PCP Emergency Medicine
DX: J02.0 Streptococcal pharyngitis (principal)
CPT/HCPCS: 87880; 99212; G0463

== ENCOUNTER 2022-08-20 15:06 | Emergency (ER) | payer BC, SELFPAY ==
[2022-08-20 16:05] VITALS: BP 142/104; PULSE 79; RESP 20; TEMP 36.7; O2SAT 97; BMI 31.8
--- NOTE | 2022-08-20 16:24 | EXP.UTC ---
Discharge Plan Disposition Patient Disposition: Home, Self-Care Condition: Good Prescriptions Prescriptions: New methylprednisolone [Medrol (Kulwant)] 4 mg tablets,dose pack 4 mg PO DAILY Qty: 21 0RF amoxicillin-pot clavulanate 875-125 mg Tablet 1 tab PO Q12H 7 Days Qty: 14 0RF No Action cholecalciferol (vitamin D3) 1,250 mcg (50,000 unit) capsule 1,250 mcg PO WEEKLY Qty: 5 3RF cholecalciferol (vitamin D3) 25 mcg (1,000 unit) capsule 25 mcg PO DAILY 90 Days Qty: 90 3RF xbkhlnbglqxkenv-mikyfcleh-JE 118 ML syrup 5 ml PO Q6HP PRN (Reason: Cough) Qty: 240 0RF azithromycin 250 MG tablet 250 mg PO UD DOSE PK Qty: 6 0RF Rx Instructions: Take two (2) tablets today, then one (1) tablet days #2 thru #5 amoxicillin 875 MG tablet 875 mg PO Q12H Qty: 20 0RF methylprednisolone 4 MG tablets,dose pack 4 mg PO DIRECTED 6 Days Qty: 21 0RF moxifloxacin 3 ML drops 1 drp EYE-RIGHT TID 7 Days Qty: 3 0RF Referrals Follow up/Referrals: Alvaro Licea MD [Primary Care Provider] - See instructions Clinical Impressions Clinical Impression: Sinusitis Instructions Patient Instructions: DI for Sinusitis, Sinusitis Discharge ED Provider: Ivon Hernandez [facility] [place] General Stated complaint: ear ache,cough Mode of Arrival: Ambulatory Source of Information: Patient Limitations: No Limitations Time Seen by Provider: 08/20/22 16:24 Description of Symptoms (Recalled from Triage Doc. by RN): PATIENT C/O RIGHT EAR PAIN, SINUS DRAINAGE, COUGH AND SORE THROAT X 2 DAYS HEENT Symptoms (Recalled from RN notes): Yes Resp Symptoms (Recalled from RN notes): Yes Skin Symptoms (Recalled from RN notes): No MS Symptoms (Recalled from RN notes): No Functional Status (Recalled from RN notes): WNL History of Present Illness Provider Complaint: Patient states that she has been having sinus congestion and pressure for over a week that has got worse in the last couple of days States that she is having sinus pain and pressure pain and pressure in her right ear Drainage in the back of her throat and sore scratchy throat States that today she was still not feeling well so she came in Related Data Previous Rx's Medication Instructions Recorded cholecalciferol (vitamin D3) 1,250 1,250 mcg PO WEEKLY #5 caps 04/22/21 mcg (50,000 unit) capsule cholecalciferol (vitamin D3) 25 25 mcg PO DAILY 90 days #90 caps 04/22/21 mcg (1,000 unit) capsule azithromycin 250 mg tablet 250 mg PO UD DOSE PK #6 tabs 10/17/21 vckhtpcqydeuzik-zwzbjjbolazykgs-AO 5 ml PO Q6HP PRN Cough #240 mL 10/17/21 2 mg-30 mg-10 mg/5 mL oral syrup amoxicillin 875 mg tablet 875 mg PO Q12H #20 tabs 07/01/22 methylprednisolone 4 mg tablets in 4 mg PO DIRECTED 6 days #21 07/01/22 a dose pack packets moxifloxacin 0.5 % eye drops 1 drp Eye-Right TID 7 days #3 mL 07/01/22 amoxicillin 875 mg-potassium 1 tab PO Q12H 7 days #14 tabs 08/20/22 clavulanate 125 mg tablet methylprednisolone 4 mg tablets in 4 mg PO DAILY #21 tabs 08/20/22 a dose pack (Medrol (Kulwant)) Allergies Allergy/AdvReac Type Severity Reaction Status Date / Time No Known Allergies Allergy Verified 07/01/22 17:58 Worker's Comp Is this a Worker's Comp case?: No [facility] Medical History (Updated 08/20/22 @ 16:32 by Ivon Hernandez APRN) History of anemia History of stroke Hypertension Social History (Updated 08/20/22 @ 16:22 by Carmencita Palacios RN) Smoking Status: Former smoker alcohol intake: current substance use type: denies use current occupational status: employed Travel in the last 8 weeks: None household members: spouse and children housing: house ROS Obtained: Yes All systems reviewed & no additional complaints except as documented and Yes Systems reviewed as appropriate & no additional complaints except as documented Constitutional Constitutional: Reports system reviewed and no additional complaints, except as documented, Reports as
[2022-08-20 16:32] VITALS: BP 142/104; PULSE 79; RESP 20; TEMP 36.7; O2SAT 97
== END 2022-08-20 16:36 | disposition home or self-care (01) ==
PROVIDERS: Emergency Provider Nurse Practitioner; PCP Emergency Medicine
DX: J32.9 Chronic sinusitis, unspecified (principal)
CPT/HCPCS: 99212; G0463

== ENCOUNTER 2022-09-10 15:14 | Emergency (ER) | payer OTHER, BC, SELFPAY ==
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
[2022-09-10 15:40] VITALS: BP 128/89; PULSE 103; RESP 20; TEMP 36.7; O2SAT 100; BMI 32.3
[2022-09-10 17:16] VITALS: BP 128/89; PULSE 103; RESP 20; TEMP 36.7; O2SAT 100
== END 2022-09-10 17:20 | disposition home or self-care (01) ==
PROVIDERS: Emergency Provider Nurse Practitioner Family; PCP Emergency Medicine
DX: V89.2XXA Person injured in unspecified motor-vehicle accident, traffic, initial encounter; R07.89 Other chest pain
CPT/HCPCS: 71046; 99212; G0463

== ENCOUNTER → 2023-06-18 14:12 | Outpatient (CLI) | payer BC, SELFPAY ==
[2023-06-18 13:08] LABS: Alanine Aminotransferase 27 U/L (12-78); Albumin Level 4.4 g/dl (3.5-5.0); Albumin/Globulin Ratio 1.5 (1.1-1.8); Alkaline Phosphatase 78 U/L (38-126); Anion Gap 12.9 mEq/L (5-15); Aspartate Amino Transferase 28 U/L (14-36); Bilirubin,Total 0.3 mg/dl (0.2-1.3); Blood Urea Nitrogen 15 mg/dl (7-17); Calcium 9.2 mg/dl (8.4-10.2); Carbon Dioxide 24 mmol/L (22.0-30.0); Chloride 108 mmol/L (98-107); Chol/HDL Ratio 5.1 (1-3.5); Cholesterol 238 mg/dl (140-200); Estimated Glomerular Filt Rate 78 ml/min (>60); GFR (African American) 95 ML/MIN (>60); Glucose 118 mg/dl (74-100); HDL Cholesterol 47 mg/dl (40-60); Potassium 4.9 mmoL/L (3.5-5.1); Sodium 140 mmol/L (136-145); Total Protein,Serum 7.4 g/dl (6.3-8.2); Triglycerides 153 mg/dl (30-150); VLDL Cholesterol 31 mg/dL (0-40)
[2023-06-18 13:26] LABS: 25-OH Vitamin D, Total 25.8 ng/mL (30-100)
[2023-06-18 13:41] LABS: Basophils % 0.6 % (0.1-2.0); Eosinophils # 0.1 K/mm3 (0.0-0.4); Eosinophils % 2.2 % (0.1-12.0); Hemoglobin 14.2 g/dL (12.2-16.2); Lymphocytes # 1.9 K/mm3 (0.7-4.5); Lymphocytes % 30.9 % (10-50); Mean Corpuscular HGB Conc 34.6 g/dL (31.8-35.4); Mean Corpuscular Hemoglobin 30.5 pg (27.0-31.2); Mean Corpuscular Volume 88.3 fl (81-99); Mean Platelet Volume 7.6 fl (7.4-10.4); Monocytes # 0.4 K/mm3 (0.1-1.0); Monocytes % 5.8 % (1.7-9.3); Neutrophils # 3.7 K/mm3 (1.8-7.8); Neutrophils % 60.5 % (37.0-80.0); Platelet Count 397 K/mm3 (142-424); Red Blood Count 4.64 M/mm3 (4.20-5.40); Red Cell Distribution Width 13.3 % (11.5-17.5); White Blood Count 6.1 K/mm3 (4.8-10.8)
[2023-06-18 13:43] LABS: Thyroid Stimulating Hormone 1.75 uIU/mL (0.465-4.68)
== END ==
PROVIDERS: PCP Nurse Practitioner Family; Visit Provider Nurse Practitioner Family
DX: R53.83 Other fatigue (principal); I10 Essential (primary) hypertension; E55.9 Vitamin D deficiency, unspecified
CPT/HCPCS: 80053; 80061; 82306; 84443; 85025

== ENCOUNTER → 2023-09-20 10:40 | Outpatient (CLI) | payer BC, SELFPAY ==
[2023-09-20 19:35] LABS: Alanine Aminotransferase 31 U/L (12-78); Albumin Level 4.2 g/dl (3.5-5.0); Albumin/Globulin Ratio 1.3 (1.1-1.8); Alkaline Phosphatase 80 U/L (38-126); Anion Gap 13.3 mEq/L (5-15); Aspartate Amino Transferase 34 U/L (14-36); Bilirubin,Total 0.3 mg/dl (0.2-1.3); Blood Urea Nitrogen 11 mg/dl (7-17); Calcium 9.4 mg/dl (8.4-10.2); Carbon Dioxide 23 mmol/L (22.0-30.0); Chloride 106 mmol/L (98-107); Chol/HDL Ratio 5.3 (1-3.5); Cholesterol 233 mg/dl (140-200); Estimated Glomerular Filt Rate 91 ml/min (>60); GFR (African American) 111 ML/MIN (>60); Globulin 3.2 g/dL (1.3-3.2); Glucose 84 mg/dl (74-100); HDL Cholesterol 44 mg/dl (40-60); Hemoglobin A1C 5.7 % (4.0-6.0); Potassium 4.3 mmoL/L (3.5-5.1); Sodium 138 mmol/L (136-145); Total Protein,Serum 7.4 g/dl (6.3-8.2); Triglycerides 245 mg/dl (30-150); VLDL Cholesterol 49 mg/dL (0-40)
[2023-09-20 19:39] LABS: Basophils % 0.5 % (0.1-2.0); Eosinophils # 0.2 K/mm3 (0.0-0.4); Eosinophils % 2.3 % (0.1-12.0); Hematocrit 40.8 % (37.0-47.0); Hemoglobin 13.8 g/dL (12.2-16.2); Lymphocytes % 23.6 % (10-50); Mean Corpuscular HGB Conc 33.8 g/dL (31.8-35.4); Mean Corpuscular Hemoglobin 29.7 pg (27.0-31.2); Mean Corpuscular Volume 87.9 fl (81-99); Mean Platelet Volume 9.2 fl (7.4-10.4); Monocytes # 0.5 K/mm3 (0.1-1.0); Monocytes % 6.1 % (1.7-9.3); Neutrophils # 5.6 K/mm3 (1.8-7.8); Neutrophils % 67.5 % (37.0-80.0); Platelet Count 372 K/mm3 (142-424); Red Blood Count 4.64 M/mm3 (4.20-5.40); Red Cell Distribution Width 13.7 % (11.5-17.5); White Blood Count 8.3 K/mm3 (4.8-10.8)
[2023-09-20 19:46] LABS: Direct LDL Cholesterol 135.84 mg/dL (100-129)
[2023-09-20 20:07] LABS: Erythrocyte Sedimentation Rate 2 mm/hr (0-20)
[2023-09-20 20:41] LABS: Vitamin B12 962 pg/mL (239-931)
== END ==
PROVIDERS: PCP Internal Medicine; Visit Provider Internal Medicine
DX: R53.83 Other fatigue (principal); G62.9 Polyneuropathy, unspecified; D17.1 Benign lipomatous neoplasm of skin and subcutaneous tissue of trunk; F51.01 Primary insomnia; E66.9 Obesity, unspecified; Z68.31 Body mass index [BMI] 31.0-31.9, adult
CPT/HCPCS: 80053; 80061; 82607; 82746; 83036; 85025; 85651

== ENCOUNTER → 2023-10-14 23:28 | Outpatient (CLI) | payer BC, SELFPAY | PROVIDERS: PCP Emergency Medicine; Visit Provider Nurse Practitioner Family | DX: L60.0 Ingrowing nail (principal); B35.1 Tinea unguium | CPT/HCPCS: 87102; 87206; 87220 ==

== ENCOUNTER 2024-02-02 15:55 | Emergency (ER) | payer BC, SELFPAY ==
[2024-02-02 16:40] VITALS: BP 127/88; PULSE 85; RESP 20; TEMP 36.6; O2SAT 97; BMI 29.0
--- NOTE | 2024-02-02 16:55 | EXP.UTC ---
Discharge Plan Disposition Patient Disposition: Home, Self-Care Condition: Good Prescriptions Prescriptions: New amoxicillin 875 mg tablet 875 mg PO Q12H Qty: 20 0RF No Action cholecalciferol (vitamin D3) 25 mcg (1,000 unit) capsule 25 mcg PO DAILY 30 Days Qty: 30 4RF Fish Oil 100-160-1,000 mg capsule PO multivitamin Tablet 1 tab PO DAILY mecobalamin (vitamin B12) 1,000 mcg tablet,chewable 1,000 mcg PO DAILY Referrals Follow up/Referrals: Peter Hood DO [Primary Care Provider] - See instructions Activity Restrictions/Add. Instructions Additional Instructions/Restrictions: *Monitor Temp, Over the counter Motrin or Tylenol as directed/as needed Tylenol every 4 hours and Motrin every 6 hours (as long as your family doctor has told you that you can take it) for fever or pain. and straight to ER if unable to lower temp less than 101.0 after medication given *Warm salt water gargles may help to soothe the throat *Throat Lozenges? *Warm fluids like tea with honey may help to soothe the throat? *Sleep elevated *Humidifier/Vaporizer *Flonase 2 sprays in each nostril daily but be aware that it may take 2-3 days before you notice improvement *Bromfed may cause drowsiness. Know how it effects you (your child) before driving, caring for small child, or sending your child to school. Not other antihistamines/allergy medications while taking bromfed Your throat swab was sent for culture. Those results are typically sent to your primary care. Be sure to follow up in 2-3 days with your family doctor/primary care physician if no improvement so they can review those result and treat if necessary. If you don?t have a primary care doctor, I recommend you get one but in the mean time, you will have to return to a walk in clinic Follow up IMMEDIATELY for new or worsening symptoms or no Noticeable improvement over the next 48-72 hours. 911 for difficulty breathing or swallowing Clinical Impressions Clinical Impression: Otitis media Stand Alone Forms Stand Alone Forms: Work/School Release Instructions Patient Instructions: Middle Ear Infection, DI for Strep Throat, Strep Throat [place]charge ED [place] Ivon Hernandez [facility] [place] General Stated complaint: sore throat, ear ache, body ache Mode of Arrival: Ambulatory Source of Information: Patient Limitations: No Limitations Time Seen by Provider: 02/02/24 16:55 Description of Symptoms (Recalled from Triage Doc. by RN): PATIENT C/O LEFT EAR ACHE, SORE THROAT, SNEEZING, COUGHING, BODY ACHES AND FEVER. HEENT Symptoms (Recalled from RN notes): Yes Resp Symptoms (Recalled from RN notes): Yes Skin Symptoms (Recalled from RN notes): No MS Symptoms (Recalled from RN notes): No Functional Status (Recalled from RN notes): WNL History of Present Illness Provider Complaint: Patient states that she has been having sore throat, pain in her left ear, coughing body aches, chills and fever States she feels like she may have the flu or something and ear infection states that this evening she was still not feeling well so she came in Related Data Home Medications Medication Instructions Recorded Confirmed mecobalamin (vitamin B12) 1,000 1,000 mcg PO DAILY 01/13/24 01/13/24 mcg chewable tablet multivitamin 1 tab PO DAILY 01/13/24 01/13/24 omega 5-ksn-jql-fish oil 100 cap PO 01/13/24 01/13/24 mg-160 mg-1,000 mg capsule (Fish Oil) Previous Rx's Medication Instructions Recorded cholecalciferol (vitamin D3) 25 25 mcg PO DAILY 30 days #30 caps 10/05/23 mcg (1,000 unit) capsule amoxicillin 875 mg tablet 875 mg PO Q12H #20 tabs 02/02/24 Allergies Allergy/AdvReac Type Severity Reaction Status Date / Time No Known Allergies Allergy Verified 01/13/24 09:12 Worker's Comp Is this a Worker's Comp case?: No [facility] Disclaimer: The information contained in this section may have been updated after the patient was seen, as this information can be updated by other users. Medical History History of anemia History of stroke Hypertension Social History Smoking Status: Former smoker alcohol intake: current substance use type: denies use current occupational status: employed Travel in the last 8 weeks: None household members: spouse and children housing: house ROS Obtained: Yes All systems reviewed & no additional complaints except as documented and Yes Systems reviewed as appropriate & no additional complaints except as documented Constitutional Constitutional: Reports system reviewed and no additional complaints, except as documented, Reports as per HPI, Reports body ache, Reports chills and Reports fever(s) ENT Ears, Nose, Mouth, and Throat: Reports system reviewed and no additional complaints, except as documented, Reports as per HPI, Reports otalgia, Reports nasal congestion and Reports sore throat Cardiovascular Cardiovascular: Reports system reviewed and no additional complaints, except as documented and Reports as per HPI Respiratory Respiratory: Reports system reviewed and no additional complaints, except as documented and Reports as per HPI Gastrointestinal Gastrointestingal: Reports system reviewed and no additional complaints, except as documented and as per HPI Physical Exam General General appearance: alert and in no apparent distress ENT ENT exam: Present mucous membranes moist Expanded ENT Exam TM/Canal exam: Left TM: erythema and loss of landmarks Nose exam: Absent sinus tenderness Throat exam: Present tonsillar erythema Respiratory Respiratory exam: Present normal lung sounds bilaterally; Absent respiratory distress or wheezes Cardiovascular Cardiovascular exam: Present regular rate, normal rhythm and normal heart sounds Abdominal Exam Abdominal exam: Present soft and normal bowel sounds; Absent distention or tenderness Neurological Exam Neurological exam: Present alert, oriented X3 and normal gait Medical Decision Making Kyle Inquiry Pt receiving controlled substance: No Kyle was queried for this patient: No Vital Signs: 02/02/24 16:40 Temperature 97.8 F Temperature Source Oral Pulse Rate [Left Brachial] 85 Respiratory Rate 20 Blood Pressure [Left Arm] 127/88 Blood Pressure Mean [Left Arm] 101 Blood Pressure Source [Left Arm] Automatic Cuff Blood Pressure Position [Left Arm] Sitting 02 Sat by Pulse Oximetry 97 Oxygen Delivery Method Room Air Lab Data Lab results reviewed: Yes I reviewed the patient's lab results.
[2024-02-02 17:09] VITALS: BP 127/88; PULSE 85; RESP 20; TEMP 36.6; O2SAT 97
[2024-02-02 17:10] LABS: UTC Strep Screen (Rapid) Positive (Negative)
[2024-02-02 17:11] LABS: UTC Influenza A Antigen Negative (Negative); UTC Influenza B Antigen Negative (Negative)
== END 2024-02-02 17:13 | disposition home or self-care (01) ==
PROVIDERS: Emergency Provider Nurse Practitioner; PCP Internal Medicine
DX: J02.0 Streptococcal pharyngitis (principal); R07.0 Pain in throat; H66.92 Otitis media, unspecified, left ear; R05.9 Cough, unspecified; R50.9 Fever, unspecified
CPT/HCPCS: 87804; 87880; 99212; 99214; G0463

== ENCOUNTER 2024-02-05 12:36 | Outpatient (CLI) | payer BC, SELFPAY ==
--- NOTE | 2024-02-05 12:51 | XR_ITS ---
PROCEDURE INFORMATION: Exam: XR Right Foot Complete; Alignment Exam date and time: 02/05/2024 1:10 PM Age: 43 years old Clinical indication: Pain; Foot; Right; Additional info: Foot pain TECHNIQUE: Imaging protocol: Radiologic exam of the right foot. Views: 3 or more views. COMPARISON: CR XR ANKLE WT BEARING RT MIN 3V 02/05/2024 1:10 PM FINDINGS: Bones/joints: There is no evidence of acute fracture.There is no evidence of malalignment or dislocation. Soft tissues: Normal. IMPRESSION: There is no evidence of acute fracture.There is no evidence of malalignment or dislocation.
--- NOTE | 2024-02-05 12:51 | XR_ITS ---
PROCEDURE INFORMATION: Exam: XR Left Ankle Exam date and time: 02/05/2024 1:10 PM Age: 43 years old Clinical indication: Pain; Ankle; Left; Additional info: Foot pain TECHNIQUE: Imaging protocol: Radiologic exam of the left ankle. Views: 3 or more views. COMPARISON: CR ANKL3 ANKLE-LT-3 VIEWS 05/27/2017 5:38 PM FINDINGS: Bones/joints: There is no evidence of acute fracture.There is no evidence of malalignment or dislocation. Mild degenerative changes in the medial malleolus Soft tissues: Normal. IMPRESSION: There is no evidence of acute fracture.There is no evidence of malalignment or dislocation.
--- NOTE | 2024-02-05 12:51 | XR_ITS ---
PROCEDURE INFORMATION: Exam: XR Right Ankle Exam date and time: 02/05/2024 1:10 PM Age: 43 years old Clinical indication: Pain; Ankle; Right; Additional info: Foot pain TECHNIQUE: Imaging protocol: Radiologic exam of the right ankle. Views: 3 or more views. COMPARISON: CR XR FOOT WT BEARING RT 3V 02/05/2024 1:10 PM FINDINGS: Bones/joints: There is no evidence of acute fracture.There is no evidence of malalignment or dislocation. Soft tissues: Normal. IMPRESSION: There is no evidence of acute fracture.There is no evidence of malalignment or dislocation.
--- NOTE | 2024-02-05 12:51 | XR_ITS ---
PROCEDURE INFORMATION: Exam: XR Left Foot Complete; Alignment Exam date and time: 02/05/2024 1:10 PM Age: 43 years old Clinical indication: Pain; Foot; Left; Additional info: Foot pain TECHNIQUE: Imaging protocol: Radiologic exam of the left foot. Views: 3 or more views. COMPARISON: CR XR ANKLE WT BEARING LT MIN 3V 02/05/2024 1:10 PM FINDINGS: Bones/joints: There is no evidence of acute fracture.There is no evidence of malalignment or dislocation. Soft tissues: Normal. IMPRESSION: There is no evidence of acute fracture.There is no evidence of malalignment or dislocation.
== END 2024-02-05 23:59 ==
PROVIDERS: PCP Internal Medicine; Visit Provider Internal Medicine
DX: M25.571 Pain in right ankle and joints of right foot (principal); M25.572 Pain in left ankle and joints of left foot; M79.671 Pain in right foot; M79.672 Pain in left foot
CPT/HCPCS: 73610; 73630

== ENCOUNTER 2024-05-14 10:52 | Emergency (ER) | payer BC, SELFPAY ==
[2024-05-14 11:00] VITALS: BP 135/92; PULSE 101; RESP 18; TEMP 36.5; O2SAT 97; BMI 29.0
--- NOTE | 2024-05-14 11:13 | EXP.UTC ---
Discharge Plan Disposition Patient Disposition: Home, Self-Care Condition: Good Prescriptions Prescriptions: New phenazopyridine [Pyridium] 200 mg tablet 200 mg PO Q8H 2 Days Qty: 6 0RF pseudoephedrine HCl 30 mg tablet 30 mg PO Q6HP PRN (Reason: Congestion) Qty: 30 0RF cefdinir 300 mg capsule 300 mg PO BID Qty: 20 0RF No Action diclofenac sodium 1 % gel 4 g topical QID PRN (Reason: pain ) 30 Days Qty: 100 2RF Rx Instructions: apply to single, ankle, foot; for foot includes sole/toes/top of foot ciclopirox 8 % solution 1 applic topical DAILY 90 Days Qty: 6.6 3RF Rx Instructions: apply over previous coat; remove with alcohol every 7 days and file down nail cholecalciferol (vitamin D3) 25 mcg (1,000 unit) capsule 25 mcg PO DAILY 30 Days Qty: 30 4RF Fish Oil 100-160-1,000 mg capsule PO multivitamin Tablet 1 tab PO DAILY Referrals Follow up/Referrals: Peter Hood DO [Primary Care Provider] - See instructions Activity Restrictions/Add. Instructions Additional Instructions/Restrictions: Drink plenty of fluids. Take tylenol or ibuprofen for pain or fever. Take the medications as directed. Follow up with your regular doctor. GO TO THE ER FOR ANY WORSENING SYMPTOMS The pyridium will make your urine turn orange, this is an expected side effect. It will stain your clothes if it comes into contact with them. We will culture the urine. That will tell what bacteria is causing your infection and which antibiotics will treat it best. Sometimes the first antibiotic we prescribe turns out to not work against different bacteria. So, make sure you follow up within 3 days if you are not getting better. Clinical Impressions Clinical Impression: Otitis media, UTI (urinary tract infection) Stand Alone Forms Stand Alone Forms: Work/School Release Instructions Patient Instructions: Urine Culture, DI for Urinary Tract Infection (UTI), Phenazopyridine Discharge ED Provider[place]eka [place] [facility] [place] General Stated complaint: right ear pain, urination frequency Mode of Arrival: Ambulatory Source of Information: Patient Limitations: No Limitations Time Seen by Provider: 05/14/24 11:13 Description of Symptoms (Recalled from Triage Doc. by RN): PATIENT C/O RIGHT EAR PAIN AND URINARY URGENCY X 3 DAYS HEENT Symptoms (Recalled from RN notes): Yes Resp Symptoms (Recalled from RN notes): No Skin Symptoms (Recalled from RN notes): No MS Symptoms (Recalled from RN notes): No Functional Status (Recalled from RN notes): WNL History of Present Illness Provider Complaint: She states that for the past 4 days she has had urinary frequency, dysuria, and low back pain. She is also having right ear pain and pressure. Related Data Home Medications Medication Instructions Recorded Confirmed multivitamin 1 tab PO DAILY 01/13/24 04/11/24 omega 0-vip-rot-fish oil 100 cap PO 01/13/24 04/11/24 mg-160 mg-1,000 mg capsule (Fish Oil) Previous Rx's Medication Instructions Recorded cholecalciferol (vitamin D3) 25 25 mcg PO DAILY 30 days #30 caps 10/05/23 mcg (1,000 unit) capsule ciclopirox 8 % topical solution 1 applic topical DAILY toenail 02/15/24 fungus 3 months #6.6 mL diclofenac sodium 1 % topical gel 4 g topical QID PRN pain 30 days 02/15/24 #100 grams cefdinir 300 mg capsule 300 mg PO BID #20 caps 05/14/24 phenazopyridine 200 mg tablet 200 mg PO Q8H 2 days #6 tabs 05/14/24 (Pyridium) pseudoephedrine HCl 30 mg tablet 30 mg PO Q6HP PRN Congestion #30 05/14/24 tabs Allergies Allergy/AdvReac Type Severity Reaction Status Date / Time No Known Allergies Allergy Verified 04/11/24 09:23 Worker's Comp Is this a Worker's Comp case?: No [facility] Disclaimer: The information contained in this section may have been updated after the patient was seen, as this information can be updated by other users. Medical History (Updated 05/14/24 @ 11:29 by Beka Jones APRN) Urinary tract infection History of anemia History of stroke Hypertension Social History Smoking Status: Former smoker alcohol intake: current alcohol intake frequency: holidays/special occasions only substance use type: denies use current occupational status: employed Travel in the last 8 weeks: None household members: spouse and children housing: house ROS Obtained: Yes All systems reviewed & no additional complaints except as documented Constitutional Constitutional: Reports system reviewed and no additional complaints, except as documented, Denies chills and Denies fever(s) Eyes Eyes: Denies eye discharge ENT Ears, Nose, Mouth, and Throat: Reports as per HPI, Denies dysphagia, Reports otalgia, Denies sore throat and Denies throat swelling Cardiovascular Cardiovascular: Denies chest pain and Denies dyspnea Respiratory Respiratory: Denies chest congestion, Denies cough and Denies dyspnea Gastrointestinal Gastrointestingal: Denies abdominal pain, constipation, diarrhea, dysphagia, nausea or vomiting Genitourinary Female Genitourinary: Reports as per HPI, Reports dysuria, Reports urinary frequency, Denies urinary incontinence, Reports urinary hesitancy and Reports urinary urgency Musculoskeletal Musculoskeletal: Denies arthralgias and Reports back pain Integumentary/Breasts Skin/Breast: Denies rash Neurologic Neurologic: Denies paresthesias Allergic/Immunologic Allergic/Immunologic: Denies throat swelling Physical Exam General General appearance: alert and in no apparent distress Head Head exam: atraumatic, normocephalic and normal inspection Eye Eye exam: Present normal appearance; Absent PERRL or EOMI ENT ENT exam: Present mucous membranes moist and normal external ear exam Expanded ENT Exam TM/Canal exam: Bilateral TM: erythema, bulging and effusion Nose exam: Absent sinus tenderness Nasal speculum exam: Bilateral: normal Mouth exam: Present normal external inspection and other; Absent drooling Teeth exam: Present normal inspection Throat exam: Present tonsillar erythema and tonsillomegaly Neck Neck exam: Present normal inspection, full ROM and trachea midline; Absent tenderness, meningismus or lymphadenopathy Chest Chest inspection: Present normal inspection and symmetric chest wall rise; Absent tenderness Respiratory Respiratory exam: Present normal lung sounds bilaterally; Absent respiratory distress, wheezes or stridor Cardiovascular Cardiovascular exam: Present regular rate, normal rhythm and normal heart sounds; Absent tachycardia or irregular rhythm Abdominal Exam Abdominal exam: Present soft and normal bowel sounds; Absent distention, tenderness, guarding, rebound or rigidity Extremities Exam Extremities exam: Present normal inspection and normal capillary refill; Absent tenderness, joint swelling or calf tenderness Back Exam Back exam: Present normal inspection and full ROM; Absent tenderness, CVA tenderness (R) or CVA tenderness (L) Neurological Exam Neurological exam: Present alert, oriented X3, CN II-XII intact, normal gait and reflexes normal; Absent motor sensory deficit Psychiatric Psychiatric exam: Present normal affect and normal mood Skin Skin exam: Present warm, dry, intact and normal color Lymphatic Lymphatic Findings: no adenopathy Medical Decision Making Medical Records Medical records reviewed: No I reviewed the patient's medical records. Kyle Inquiry Pt receiving controlled substance: No Vital Signs: 05/14/24 11:00 Temperature 97.7 F Temperature Source Oral Pulse Rate [Left Brachial] 101 H Respiratory Rate 18 Blood Pressure [Left Arm] 135/92 H Blood Pressure Mean [Left Arm] 106 Blood Pressure Source [Left Arm] Automatic Cuff Blood Pressure Position [Left Arm] Sitting 02 Sat by Pulse Oximetry 97 Oxygen Delivery Method Room Air Lab Data Lab results reviewed: Yes I reviewed the patient's lab results.
[2024-05-14 11:14] LABS: Apearance,Urine Cloudy (Clear); Color,Urine Yellow (Yellow); Glucose,Urine (UA) Negative (Negative); Ketones,Urine Negative (Negative); PH,Urine 5.5 (5.0-8.5); Protein,Urine 1+ (Negative); Specific Gravity, Urine 1.015 (1.005-1.030)
[2024-05-14 11:15] LABS: Bilirubin,Urine Negative (Negative); Blood, Urine 3+ (Negative); UTC Leukocyte Esterase,Urine 3+ (Negative); UTC Nitrate,Urine Negative (Negative); Urobilinogen,Urine 0.2 EU/dl (0.2)
[2024-05-14 11:30] VITALS: BP 135/92; PULSE 101; RESP 18; TEMP 36.5; O2SAT 97
--- NOTE | 2024-05-16 12:36 | PC.NURSE ---
REVIEWED PATIENT'S URINE CULTURE WITH Emre ROSA APRN. NO CHANGE NEEDED.
== END 2024-05-14 11:34 | disposition home or self-care (01) ==
PROVIDERS: Emergency Provider Nurse Practitioner Family; PCP Internal Medicine
DX: N39.0 Urinary tract infection, site not specified (principal); B96.29 Other Escherichia coli [E. coli] as the cause of diseases classified elsewhere; M54.59 Other low back pain; R35.0 Frequency of micturition; R30.0 Dysuria; H66.91 Otitis media, unspecified, right ear
CPT/HCPCS: 81003; 87086; 87088; 87186; 99212; 99214; G0463

== ENCOUNTER 2024-10-18 16:00 | Outpatient (RCR) | payer BC, SELFPAY ==
--- NOTE | 2024-07-28 09:39 | HMH.PTOPEV ---
PT Outpatient Evaluation Rehab PT Outpatient Evaluation Start: 07/28/24 09:31 Freq: Status: Active Protocol: Document 07/28/24 09:31 TICOSANCHEZ (Rec: 07/28/24 09:39 REID [id number]) E-signed By Mateus Hernandez, PT Outpatient Therapy Subjective History Subjective History Pt reports h/o chronic right ankle instability and pain since initially spraining 'it while at work about a year ago .' Pt reports 'I've probably sprained it 5-6 times since the first time, and most recent was about a week ago.' Pt reports right ankle usually rolls into an inversion and plantar flexed position and pain is localized to the anterior and lateral jt line. Pt reports some improvement of s/s w/soft ankle compression sleeve, and w/recent cortisone injection. New diagnosis of cancer in past 12 No months? Chief Complaint Pain,Gives out/Unstable, Weakness Symptom Type Ache,Sharp Symptoms Relieved By Rest/Positioning,Ice, Prescription Meds Symptoms Aggravated By Physical Activity,Walking Prior Functional Limitations Housework,Walking Current Functional Limitations Housework,Walking Symptom Description Constant but Variable Level of pain today (0-10) 4 Pain scale - at its best (0-10) 2 Pain scale - at its worst (0-10) 7 Ankle/Foot Eval Gait Observation General Gait Pattern Observation Antalgic Gait Assistive Device Ambulation Assistive Device None Palpation Tenderness right Ankle/Foot Palpation Findings Tenderness Ankle/Foot Palpation Overall Comment 2-3/4 peroneal tendons, ATF lig ATF TTP positive ROM Ankle/Foot Dorsiflexion w/Knee Extended 0-12 Active Range Motion (degrees) Ankle/Foot Plantar Flexion Active Range 0-60 of Motion (degrees) Ankle/Foot Eversion Active Range of 0-30 Motion (degrees) Ankle/Foot Inversion Active Range of 0-55 Motion (degrees) MMT Ankle Dorsiflexion Strength Grade 5 Normal Ankle Plantarflexion Strength Grade 5 Normal Foot Eversion Strength Grade 4- Good- Foot Inversion Strength Grade 4- Good- Special Tests Ankle Anterior Drawer Test Positive Right Talar Tilt Test Positive Right Lower Extremity Functional Index Activities Today, do you or would you have any difficulty at all with: a.Any of your usual work, housework or Moderate difficulty school activities b. Your usual hobbies, recreational or Moderate difficulty sporting activities c. Getting into or out of the bath No difficulty d. Walking between rooms A little bit of difficulty e. Putting on your shoes or socks No difficulty f. Squatting No difficulty g. Lifting an object, like a bag of No difficulty groceries from the floor h. Performing light activities around No difficulty your home i. Performing heavy activities around Moderate difficulty your home j. Getting into or out of a car No difficulty k. Walking 2 blocks A little bit of difficulty l. Walking a mile Moderate difficulty m. Going up or down 10 stairs (about 1 A little bit of difficulty flight of stairs) n. Standing for 1 hour A little bit of difficulty o. Sitting for 1 hour No difficulty p. Running on even ground Extreme difficulty or unable to perform activity q. Running on uneven ground Extreme difficulty or unable to perform activity r. Making sharp turns while running fast Extreme difficulty or unable to perform activity s. Hopping Quite a bit of difficulty t. Rolling over in bed No difficulty LEFI Score Lower Extremity Functional Index Score 53 Outpatient Therapy Assessment Impairments Problems/Impairmments Palpation Tenderness,Impaired Strength,Impaired Gait Pattern ,Impaired Walking,Impaired Standing,Impaired Household Care,Impaired Stair Climbing, Subjective C/O Pain,Impaired Self Care/Self Management Prognosis Rehab Potential Good Clinical Impression Consistent with Diagnosis Yes Short Term Goals Number of Weeks 4 Decreased Palpation Tenderness Yes: 1-2/4 right ankle Increase Strength Yes: 4/5 right ankle mm Increase Ability to Walk Yes: 30min Increase Ability to Stand Yes: 30min Decrease Subjective C/O Pain Yes: 3/10 w/above activities Patient to be Ind w/ HEP Yes Penitentiary Goals Number of Weeks 8-10 Decreased Palpation Tenderness Yes: 0-1/4 right ankle Increase Strength Yes: 4+-5/5 right ankle mm Improve Gait Pattern without Assistive Yes: WFL ON LEVEL AND UNLEVEL Device TERRAIN Increase Ability to Walk Yes: 60MIN Increase Ability to Stand Yes: 60MIN Improve Ability For Household Care Yes: WFL Improve Tolerance to Work Activities Yes: WFL FULL-DUTY Improve LEFI Score Yes: 60-70 Decrease Subjective C/O Pain Yes: 0-2/10 W/ABOVE ACTIVITIES Patient to be Ind w/ Advanced HEP Yes Outpatient Therapy Plan of Care Treatment Plan May Include Therapeutic Exercise Including Home Yes Exercise Program Manual Therapy Techniques Yes Neuromuscular Re-education Yes Therapeutic Activities to Return to Yes Previous Functional/Work Level Gait Training Yes ADL/Self Care Education Yes Dry Needling Yes Thermal Modalities Yes Electrical Stimulation Yes Ultrasound/Phonophoresis Yes Iontophoresis Yes Orthotics/Bracing/Splinting Yes Vasopneumatic Compression Pump Yes Eval/Re-Eval Yes Frequency Times per week 2-3 Duration Number of Weeks 8-10 Addendums This patient is a candidate for social No or vocational rehab? Patient/Guardian verbally acknowledges Yes understanding of treatment program and consents to further treatment? Patient/Guardian verbally acknowledges Yes understanding of diagnosis, prognosis and goals for treatment? Eval Complexity PT Charges 28370 - Moderate Complexity Shoulder/Elbow Eval Shoulder Objective Measurements Elbow Objective Measurements PHYSICIAN CERTIFICATION: I certify the specified therapy services for Josselyn Wan are required, authorized, and reviewed every 30 days.
--- NOTE | 2024-08-25 10:19 | HMH.RHREAS ---
Rehab Reassessment Rehab OP Re-assessment Start: 07/28/24 09:31 Freq: Status: Active Protocol: Document 08/25/24 10:13 REID (Rec: 08/25/24 10:19 REID [id number]) E-signed By Mateus Hernandez, PT Lower Extremity Functional Index Activities Today, do you or would you have any difficulty at all with: a.Any of your usual work, housework or Moderate difficulty school activities b. Your usual hobbies, recreational or Quite a bit of difficulty sporting activities c. Getting into or out of the bath No difficulty d. Walking between rooms No difficulty e. Putting on your shoes or socks No difficulty f. Squatting Moderate difficulty g. Lifting an object, like a bag of No difficulty groceries from the floor h. Performing light activities around No difficulty your home i. Performing heavy activities around Moderate difficulty your home j. Getting into or out of a car No difficulty k. Walking 2 blocks Moderate difficulty l. Walking a mile Moderate difficulty m. Going up or down 10 stairs (about 1 Moderate difficulty flight of stairs) n. Standing for 1 hour Moderate difficulty o. Sitting for 1 hour No difficulty p. Running on even ground Quite a bit of difficulty q. Running on uneven ground Extreme difficulty or unable to perform activity r. Making sharp turns while running fast Extreme difficulty or unable to perform activity s. Hopping Quite a bit of difficulty t. Rolling over in bed No difficulty LEFI Score Lower Extremity Functional Index Score 49 Rehab Re-assessment Subjective Subjective Pt reports 50% improvement related to right ankle pain and function overall since I eval, and reports 4-5/10 right ankle on VAS this am Objective Objective Notes AROM: RIGHT ANKLE DF 0-12, PF 0-55, EVR 0-28, INV 0-50 MMT: RIGHT ANKLE DF 5/5, PF 5/ 5, INV 4+-5/5, EVR 4+-5/5 TTP: RIGHT ATF LIG 1/ GAIT: WFL ON LEVEL TERRAIN Assessment Progress Assessment Progressing as Expected Assessment Notes IMPROVED ROM, STRENGTH, TTP, AND GAIT Patient goals met STG'S 04/03 LTG'S 02/05 Goals Not Met STG'S 12/04, LTG'S 06/07 Plan Plan Pt to continue w/skilled P.T. to make further improvements in ROM, strength, TTP, and gait to allow for optimal function Frequency of Therapy 1-2x/wk Duration of therapy 3-5wks Time and Billing Re-Eval Time 11 Re-Eval Billing Units 1 PHYSICIAN CERTIFICATION: I certify the specified therapy services for Josselyn Wan are required, authorized, and reviewed every 30 days.
--- NOTE | 2024-09-22 08:58 | HMH.RHREAS ---
Rehab Reassessment Rehab OP Re-assessment Start: 07/28/24 09:31 Freq: Status: Active Protocol: Document 09/22/24 08:46 TICOSANCHEZ (Rec: 09/22/24 08:58 REID [id number]) E-signed By Mateus Hernandez, PT Lower Extremity Functional Index Activities Today, do you or would you have any difficulty at all with: a.Any of your usual work, housework or Moderate difficulty school activities b. Your usual hobbies, recreational or Moderate difficulty sporting activities c. Getting into or out of the bath No difficulty d. Walking between rooms No difficulty e. Putting on your shoes or socks No difficulty f. Squatting Moderate difficulty g. Lifting an object, like a bag of A little bit of difficulty groceries from the floor h. Performing light activities around Moderate difficulty your home i. Performing heavy activities around Moderate difficulty your home j. Getting into or out of a car No difficulty k. Walking 2 blocks Moderate difficulty l. Walking a mile Moderate difficulty m. Going up or down 10 stairs (about 1 Moderate difficulty flight of stairs) n. Standing for 1 hour A little bit of difficulty o. Sitting for 1 hour No difficulty p. Running on even ground Moderate difficulty q. Running on uneven ground Quite a bit of difficulty r. Making sharp turns while running fast Quite a bit of difficulty s. Hopping Moderate difficulty t. Rolling over in bed No difficulty LEFI Score Lower Extremity Functional Index Score 52 Rehab Re-assessment Subjective Subjective Pt reports 'I feel stronger than when we started, and it's not swelling as much, and it doesn't feel like it's going to give out as much either.' Pt reports 12/08 right ankle pain on VAS this am Objective Objective Notes AROM: RIGHT ANKLE DF 0-15, PF 0-55, EVR 0-30, INV 0-50 MMT: RIGHT ANKLE DF 5/5, PF 5/ 5, INV 5/5, EVR 4+-5/5 TTP: RIGHT ATF LIG 0/4 GAIT: WFL ON LEVEL TERRAIN LEF 52 Assessment Progress Assessment Progressing as Expected Assessment Notes pt continues exhibit objective progress w/ROM and strength, however, with continued yet less frequent episodes of functional instability in right ankle, more progress is necessary w/proprioception and strength Patient goals met STG'S 05/04 LTG'S 06/07 Goals Not Met LTG'S 02/05 Plan Plan Pt to continue w/skilled P.T. to make further improvements in ROM, strength, TTP, and gait to allow for optimal function Frequency of Therapy 1-2X/WK Duration of therapy 2-4WKS Time and Billing Re-Eval Time 12 Re-Eval Billing Units 1 PHYSICIAN CERTIFICATION: I certify the specified therapy services for Josselyn Wan are required, authorized, and reviewed every 30 days.
== END 2024-10-18 23:59 | disposition home or self-care (01) ==
LOC: PT 16:00
PROVIDERS: Visit Provider Nurse Practitioner
DX: M79.671 Pain in right foot (principal); M79.672 Pain in left foot; M76.71 Peroneal tendinitis, right leg; M25.371 Other instability, right ankle; G89.29 Other chronic pain
CPT/HCPCS: 97035; 97110; 97112; 97163; 97164; 97530

== ENCOUNTER 2024-12-16 14:41 | Emergency (ER) | payer BC, SELFPAY ==
[2024-12-16 15:15] VITALS: BP 119/83; PULSE 86; RESP 18; TEMP 37; O2SAT 97; BMI 32.4
--- NOTE | 2024-12-16 16:12 | ED_ITS ---
Discharge Plan Disposition Patient Disposition: Home, Self-Care Condition: Good Prescriptions Prescriptions: New amoxicillin-pot clavulanate 875-125 mg tablet 1 tab PO Q12H 10 Days Qty: 20 0RF No Action cholecalciferol (vitamin D3) 25 mcg (1,000 unit) capsule 25 mcg PO DAILY 30 Days Qty: 30 4RF Fish Oil 100-160-1,000 mg capsule 1 cap PO DAILY multivitamin Tablet 1 tab PO DAILY magnesium 200 mg Tablet 200 mg PO DAILY Referrals Follow up/Referrals: Peter Hood DO [Primary Care Provider] - See instructions Activity Restrictions/Add. Instructions Additional Instructions/Restrictions: Take medication as prescribed. Increase fluids and rest. Take Tylenol/Ibuprofen as needed for fever/pain. If no improvement in 72 hours, return to clinic/PCP. Clinical Impressions Clinical Impression: Acute left otitis media Instructions Patient Instructions: DI for Middle Ear Infection-Adult Print Language Print Language: Telugu Discharge ED Provider: Marianela Gallagher [facility] General Stated complaint: bilateral ear pain Mode of Arrival: Ambulatory Source of Information: Patient Limitations: No Limitations Time Seen by Provider: 12/16/24 15:59 Description of Symptoms (Recalled from Triage Doc. by RN): PATIENT C/O BILATERAL EAR CONGESTION X 3 DAYS HEENT Symptoms (Recalled from RN notes): Yes Resp Symptoms (Recalled from RN notes): No Skin Symptoms (Recalled from RN notes): No MS Symptoms (Recalled from RN notes): No Functional Status (Recalled from RN notes): WNL History of Present Illness Provider Complaint: Pt reports that she has had feeling of something in her ears with decreased hearing the past couple of days. Related Data Home Medications ?Medication ?Instructions ?Recorded ?Confirmed multivitamin 1 tab PO DAILY 01/13/24 12/16/24 omega 8-nby-fpu-fish oil 100 1 cap PO DAILY 01/13/24 12/16/24 mg-160 mg-1,000 mg capsule (Fish Oil) magnesium 200 mg tablet 200 mg PO DAILY 12/16/24 12/16/24 Previous Rx's ?Medication ?Instructions ?Recorded cholecalciferol (vitamin D3) 25 25 mcg PO DAILY 30 days #30 caps 10/05/ mcg (1,000 unit) capsule amoxicillin 875 mg-potassium 1 tab PO Q12H 10 days #20 tabs 12/16/24 clavulanate 125 mg tablet Allergies Allergy/AdvReac Type Severity Reaction Status Date / Time No Known Allergies Allergy Verified 11/15/24 14:53 Worker's Comp Is this a Worker's Comp case?: No [facility] Disclaimer: The information contained in this section may have been updated after the patient was seen, as this information can be updated by other users. Medical History Urinary tract infection History of anemia History of stroke Hypertension Social History Smoking Status: Former smoker alcohol intake: current alcohol intake frequency: holidays/special occasions only substance use type: denies use current occupational status: employed Travel in the last 8 weeks: None household members: spouse and children housing: house Have you lived/traveled outside US in past 30 days?: No Contact w/someone who lives/traveled outside US past 30 days?: No Exposure to someone with infectious disease in past 14 days?: No Do you have a fever (greater than 100.4 F or 38 C)?: No Have you tested positive for COVID-19: No Exposed to someone with COVID-19 in past 14 days?: No Do you have a sore throat?: No Do you have a cough?: No Do you have any weakness?: No Do you have any diarrhea?: No Are you experiencing any unusual bleeding?: No Do you have any muscle aches/pain?: No Do you have any abdominal pain?: No Are you experiencing loss of taste or smell?: No ROS Obtained: Yes All systems reviewed & no additional complaints except as documented Constitutional Constitutional: Reports system reviewed and no additional complaints, except as documented Eyes Eyes: Reports system reviewed and no additional complaints, except as documented ENT Ears, Nose, Mouth, and Throat: Reports system reviewed and no additional complaints, except as documented, Reports as per HPI and Reports otalgia Cardiovascular Cardiovascular: Reports system reviewed and no additional complaints, except as documented Respiratory Respiratory: Reports system reviewed and no additional complaints, except as documented Gastrointestinal Gastrointestingal: Reports system reviewed and no additional complaints, except as documented Genitourinary Female Genitourinary: Reports system reviewed and no additional complaints, except as documented Musculoskeletal Musculoskeletal: Reports system reviewed and no additional complaints, except as documented Integumentary/Breasts Skin/Breast: Reports system reviewed and no additional complaints, except as documented Neurologic Neurologic: Reports system reviewed and no additional complaints, except as documented Endocrine Endocrine: Reports system reviewed and no additional complaints, except as documented Hematologic/Lymphatic Henatologic/Lymphatic: Reports system reviewed and no additional complaints, except as documented Allergic/Immunologic Allergic/Immunologic: Reports system reviewed and no additional complaints, except as documented Physical Exam General General appearance: alert and in no apparent distress Head Head exam: atraumatic and normocephalic Eye Eye exam: Present normal appearance Expanded ENT Exam External ear exam: Present normal external inspection TM/Canal exam: Left TM: perforation, loss of landmarks and canal discharge (pus) and Bilateral TM: erythema Nasal speculum exam: Bilateral: normal Mouth exam: Present normal external inspection Teeth exam: Present normal inspection Throat exam: Present normal inspection Neck Neck exam: Present normal inspection; Absent lymphadenopathy Chest Chest inspection: Present normal inspection and symmetric chest wall rise Respiratory Respiratory exam: Present normal lung sounds bilaterally Cardiovascular Cardiovascular exam: Present regular rate and normal rhythm Abdominal Exam Abdominal exam: Present soft Extremities Exam Extremities exam: Present normal inspection Back Exam Back exam: Present normal inspection Neurological Exam Neurological exam: Present alert and oriented X3 Psychiatric Psychiatric exam: Present normal affect and normal mood Skin Skin exam: Present warm, dry and intact Lymphatic Lymphatic Findings: no adenopathy Medical Decision Making Medical Records Screening: Per USPSTF and CDC recommendations, given the prevalence of disease in our region, it is our hospital?s policy to screen for HIV and viral Hepatitis for all patients aged 18 and over and those with ongoing risk factors. Kyle Inquiry Pt receiving controlled substance: No Kyle was queried for this patient: No Vital Signs: 12/16/24 15:15 Temperature 98.6 F Temperature Source Oral Pulse Rate [Right Brachial] 86 Respiratory Rate 18 Blood Pressure [Right Arm] 119/83 Blood Pressure Mean [Right Arm] 95 Blood Pressure Source [Right Arm] Automatic Cuff Blood Pressure Position [Right Arm] Sitting 02 Sat by Pulse Oximetry 97 Oxygen Delivery Method Room Air
[2024-12-16 16:27] VITALS: BP 119/83; PULSE 86; RESP 18; TEMP 37; O2SAT 97
== END 2024-12-16 16:28 | disposition home or self-care (01) ==
PROVIDERS: Emergency Provider Nurse Practitioner Family; PCP Internal Medicine
DX: H66.92 Otitis media, unspecified, left ear (principal); H92.03 Otalgia, bilateral; R09.81 Nasal congestion
CPT/HCPCS: 99212; G0381

== ENCOUNTER 2025-07-04 15:32 | Outpatient (CLI) | payer OTHER, SELFPAY ==
[2025-07-04 19:32] LABS: Hematocrit 41.5 % (37.0-47.0); Hemoglobin 12.9 g/dL (12.2-16.2); Immature Granulocytes % 0.3 %; Mean Corpuscular HGB Conc 31.1 g/dL (31.8-35.4); Mean Corpuscular Hemoglobin 27.7 pg (27.0-31.2); Mean Corpuscular Volume 89.1 fl (81-99); Nucleated Red Blood Cells % 0 %; Platelet Count 403 K/mm3 (142-424); Red Blood Count 4.66 M/mm3 (4.20-5.40); Red Cell Distribution Width-SD 43.6 fL; White Blood Count 7.6 K/mm3 (4.8-10.8)
[2025-07-04 20:03] LABS: Alanine Aminotransferase 19 U/L (12-78); Albumin Level 4.2 g/dl (3.5-5.0); Albumin/Globulin Ratio 1.7 (1.1-1.8); Alkaline Phosphatase 68 U/L (38-126); Anion Gap 10.4 mEq/L (5-15); Aspartate Amino Transferase 21 U/L (14-36); Blood Urea Nitrogen 10 mg/dl (7-17); Calcium 9.4 mg/dl (8.4-10.2); Carbon Dioxide 25 mmol/L (22.0-30.0); Chloride 106 mmol/L (98-107); Cholesterol 235 mg/dl (140-200); Creatinine,Serum 0.70 mg/dl (0.52-1.04); Estimated Glomerular Filt Rate 90 ml/min (>60); GFR (African American) 109 ML/MIN (>60); Globulin 2.5 g/dL (1.3-3.2); Glucose 108 mg/dl (74-100); HDL Cholesterol 37 mg/dl (40-60); Potassium 4.4 mmoL/L (3.5-5.1); Sodium 137 mmol/L (136-145); Total Protein,Serum 6.7 g/dl (6.3-8.2); Triglycerides 362 mg/dl (30-150)
[2025-07-04 20:08] LABS: Bilirubin,Total < 0.1 mg/dl (0.2-1.3)
[2025-07-04 20:36] LABS: Thyroid Stimulating Hormone 1.16 uIU/mL (0.465-4.68)
== END 2025-07-04 23:59 | disposition home or self-care (01) ==
LOC: LAB.DROPOF 07-05 12:20
PROVIDERS: PCP Family Medicine; Visit Provider Family Medicine
DX: E78.5 Hyperlipidemia, unspecified (principal); E66.9 Obesity, unspecified; I10 Essential (primary) hypertension
CPT/HCPCS: 80053; 80061; 84443; 85025

== ENCOUNTER 2025-07-18 14:27 | Outpatient (CLI) | payer OTHER, SELFPAY ==
--- NOTE | 2025-07-18 14:30 | MM_ITS ---
PROCEDURE INFORMATION: Exam: MG Bilateral Screening 3D Mammography Exam date and time: 07/18/2025 2:45 PM Age: 44 years old Clinical indication: Screening examination TECHNIQUE: Imaging protocol: Bilateral Screening tomosynthesis and 2D mammography including computer-aided detection (CAD) when performed. COMPARISON: 1. MG MM DIG MAMM DX UNILAT LT CAD 05/21/2021 2:09 PM 2. MG MM DIG SCREENING MAMM BI W/CAD 05/06/2021 10:52 AM FINDINGS: MAMMOGRAPHY: Breast composition: The breasts are heterogeneously dense, which may obscure small masses. Mass: No suspicious masses. Architectural distortion: None. Calcifications: No suspicious calcifications. Asymmetric density: None. Skin thickening: None. Axillary adenopathy: None. IMPRESSION: No mammographic evidence of malignancy. Annual screening is recommended unless otherwise clinically indicated. ASSESSMENT: BI-RADS Category 1: Negative.
--- OUTSIDE RECORDS SUMMARY | 2025-07-18 14:45 | XMS_ITS | Clinical Summary ---
Author Organization Healthcare Address [address] [place] [address] Care Team Providers Care Payroll Consultant Name Role Phone Gabrielle Doll APRN Primary Care Provider [phone] Allergies No known active allergies Medications GNP D 1000 25 MCG (1000 UT) capsule Take 1,000 Units by mouth 1 (one) time each day. 04/22/2021 Active Active Problems No known active problems Encounters Date Type Department Care Team Description 07/09/2025 Telephone Obstetrics & Gynecology [facility] [place] [address] Ron Carrillo MD from Last 3 Months Family History Medical History Relation Name Comments Diabetes Father Diabetes Mother Heart disease Mother Relation Name Status Comments Father Mother Social History Tobacco Use Types Packs/Day Years Used Date Smoking Tobacco: Never Smokeless Tobacco: Never Tobacco Cessation:Counseling Given: No Alcohol Use Standard Drinks/Week Comments Yes 1 (1 standard drink = 0.6 oz pur e alcohol) Comments No Sex and Gender Information Value Date Recorded Sex Assigned at Not on file Legal Sex Female 6:33 PM EDT Gender Identity Not on file Sexual Orientation Not on file Last Filed Vital Signs Vital Sign Reading Time Taken Comments Blood Pressure 120/84 04/05/2023 9:05 AM EDT Pulse 93 06/05/2021 3:22 PM EDT Temperature - - Respiratory Rate - - Oxygen Saturation - - Inhaled Oxygen Concentration - - Weight 89.5 kg (197 lb 5 oz) 04/05/2023 9:05 AM EDT Height 170.2 cm (5' 7 ) 06/05/2021 3:22 PM EDT Body Mass Index 30.9 06/05/2021 3:22 PM EDT Plan of Treatment Upcoming Encounters Date Type Department Care Team (Late st Contact Info) Description 09/03/2025 1:30 PM EDT Office Visit Obstetrics & Gynecology [address] [place] [address] Ron Carrillo MD [address] [place] [address] Health Maintenance Due Date Last Done Comments [facility]-Depression Screening 1979 [facility]-/Child/Adol SDOH Screenings 1979 [facility]-Obesity Intervention 1985 [facility]- SDOH Screenings 1997 [facility]-Adult SDOH Screenings 1997 [facility]-Hepatitis B Vaccines (1 of 3 - 19+ 3-dose series) 1998 HPV Vaccines (1 - 3-dose SCDM series) 2006 [id number] Vaccine ( season) 2024 05/22/2022, 12/19/2021, 11/26/2021 CT Colonography 2024 Colonoscopy 2024 FIT-DNA 2024 FIT 2024 FOBT 2024 Sigmoidoscopy 2024 [facility]-Colorectal Cancer Screening 2024 [facility]-Influenza Vaccine (#1) 2025 [facility]-Pap Smear 04/05/2026 04/05/2023, 05/29, 06/05/2021 [facility]-Cervical Cancer Screening 04/05/2028 [facility]-HPV/Cotest 04/05/2028 04/05/2023, 05/0 06/2023, 06/11/2022, Additional history exists [facility]-Zoster Vaccines (1 of 2) 2029 [facility]-DTaP,Tdap,and Td Vaccines (2 - Td or Tdap) 02/22/2031 02/22/2021 [facility]-HIV Screening Completed 11/11/2018 [facility]-Hepatitis C Screening Completed 11/11/2018 [facility]-HIB Vaccines Aged Out No longer e ligible based on patient's age to complete this topic [facility]-Hepatitis A Vaccines Aged Out No longer eligible based on patient's age to complete this topic [facility]-IPV Vaccines Aged Out No longer e ligible based on patient's age to complete this topic [facility]-Pneumococcal Vaccine: Pediatrics (0 to 5 Years) and At-Risk Patients (6 to 49 Years) Aged Out No longer eligible based on patient's age to complete this topic [facility]-Rotavirus Vaccines Aged Out No lo nger eligible based on patient's age to complete this topic Procedures Procedure Name Priority Date/Time Associated Diagnosis Comments PAP TEST - CYTOLOGY Routine 04/05/2023 9 :27 AM EDT Low grade squamous intraepithelial lesion (LGSIL) at risk for high grade squamous intraepithelial lesion (HGSIL) on cytologic smear of cervix HEPATITIS C ANTIBODY W/REFLEX TO HCV QUANT PCR Routine 11/11/2018 3:38 PM EST HIV 1/2 ANTIBODY/ANTIGEN SCREEN WITH REFLEX TO HIV I/II DIFFERENTIATION Routine 11/11/2018 3:38 PM EST from Last 3 Months or Most Recently Relevant to Health Maintenance Results * (ABNORMAL) Pap Test (04/05/2023 9:27 AM EDT) Case Report Cytology Case: [id number] Authorizing Provider: Ron Carrillo MD Collected: 04/05/2023 0927 Ordering Location: Obstetrics & Gynecology Received: 04/06/2023 1002 First Screen: Jihan Ling Pathologist: Iraida Osman MD Specimen: ThinPrep Pap Test, Liquid-Based Cervical/Vaginal, CERVICAL/VAGINAL 04/13/2023 10:38 AM EDT [facility] Interpretation ATYPICAL SQUAMOUS CELLS OF UNDETERMINED SIGNIFICANCE (ASCUS)(A) 04/13/2023 10:38 AM EDT [facility] at 1038 EDT Specimen Adequacy Satisfactory for evaluation; endocervical/mitchell sformation zone component present. Slide imaged by the ThinPrep Imaging system and selected 22 rivas reviewed then full manual screening. 04/13/2023 10:38 AM EDT [facility] Cervical cytology is a screening test primarily for squamous cancers and precursors and has associated false negative and positive results. New technologies such as liquid based sampling may decrease but will not eliminate all false negative results. Regular screening and follow-up of unexplained clinical signs and symptoms are recommended to minimize false negative results. Please see the ASCCP website (www.asccp.org)fo r followup recommendations. If HPV testing was requested, correlation with the results is suggested (please call Microbiology at [phone] for results). 04/13/2023 10:38 AM EDT [facility] Menstrual Status Cyclic 04/13/20 10:38 AM EDT [facility] Contraceptive History Not Applicable 04/13/2023 10:38 AM EDT [facility] Screening Type Routine Screen 2022 10:38 AM EDT [facility] High Risk? No 04/13/2023 10:38 AM EDT [facility] HPV Testing Requested? Request HPV Testing Regardless of Pap Test Findings 04/13/2023 10:38 AM EDT [facility] Previous Cancer History No 04/13/2023 10:38 AM EDT [facility] Clinical Information R87.612 - Low grade squamous intraepithelial lesion (LGSIL) at risk for high grade squamous intraepithelial lesion (HGSIL) on cytologic smear of cervix [ICD-10-CM] 04/13/2023 10:38 AM EDT [facility] Last Menstrual Period 03/29/2023 04/13/2023 10:38 AM EDT [facility] Swab Vaginal and cervical cytologic material / Unknown Non-blood Collection / Unknown 04/05/2023 9:27 AM EDT 04/06/2023 10:02 AM EDT Ron Carrillo MD LAB CYTOLOGY ORDERABLES Final R esult [facility] [address] [place] [address] * HIV 1 & 2 Antibody/Antigen Screen (11/11/2018 3:38 PM EST) HIV 1 Result NONREACTIVE Screening for HIV 1 and 2 antibodies is NONREACTIVE. No confirmatory testing is required. [facility] 11/11/2018 3:38 PM EST 11/11/2018 6:02 PM EST Beka Cohn MD LAB BLOOD ORDERABLES Final Res ult [facility] * Hepatitis C Antibody (11/11/2018 3:38 PM EST) Hepatitis C Antibody NEGATIVE Reference Range: Negative [facility] 11/11/2018 3:38 PM EST 11/11/2018 6:02 PM EST Beka Cohn MD LAB BLOOD ORDERABLES Final Res ult [facility] from Last 3 Months or Most Recently Relevant to Health Maintenance Insurance [facility] Care Teams Payroll Consultant Relationship Specialty Start Date End Date Gabrielle Doll APRN [address] [place] [address] (work) PCP - General 07/09/25
--- OUTSIDE RECORDS SUMMARY | 2025-07-18 14:45 | XMS_ITS | Encounter Summary ---
Author Organization Healthcare Address [address] [place] [place] [address] Care Team Providers Care Rod Placer Name Role Phone Gabrielle Doll APRN Primary Care Provider [phone] Encounter Details Date Type Department Care Team (Late st Contact Info) Description 07/09/2025 Telephone Obstetrics & Gynecology [address] [place] [address] Ron Carrillo MD [address] [place] [address] Social History Tobacco Use Types Packs/Day Years Used Date Smoking Tobacco: Never Smokeless Tobacco: Never Alcohol Use Standard Drinks/Week Comments Yes 1 (1 standard drink = 0.6 oz pur e alcohol) Comments No Sex and Gender Information Value Date Recorded Sex Assigned at Not on file Legal Sex Female 6:33 PM EDT Gender Identity Not on file Sexual Orientation Not on file documented as of this encounter Miscellaneous Notes * Telephone Encounter - Carlie Yang - 07/09/2025 12:39 PM EDT 07/09/25 scheduled appt per [facility] ZMT documented in this encounter Plan of Treatment Upcoming Encounters Date Type Department Care Team (Late Contact Info) Description 09/03/2025 1:30 PM EDT Office Visit Obstetrics & Gynecology [address] [place] [address] Ron Carrillo MD [address] [place] [id number] documented as of this encounter Visit Diagnoses Not on filedocumented in this encounter Care Teams Rod Placer Relationship Specialty Start Date End Date Gabrielle Doll APRN [address] [place] [address] PCP - General 07/09/25 documented as of this encounter
== END 2025-07-18 23:59 | disposition home or self-care (01) ==
LOC: RAD 14:28
PROVIDERS: PCP Family Medicine; Visit Provider Family Medicine
DX: Z12.31 Encounter for screening mammogram for malignant neoplasm of breast (principal); R92.333 Mammographic heterogeneous density, bilateral breasts
CPT/HCPCS: 77063; 77067